=== PATIENT | female | born 1935 | race Caucasian/White ===

== ENCOUNTER 2016-06-21 08:22 | Day surgery (SDC) | payer MEDICARE, MEDICAID ==
[~2016-06-21 08:22] MED LIST: Bupivacaine 0.5% 50 ML MDV ONE; Lidocaine 1% with EPINEPHrine 1:100,000 50 ML MDV ONE
[2016-06-21] MEDS ORDERED: Propofol 200 MG/20 ML SDV ONE ×2 (08:40→10:18)
[2016-06-21] MEDS ORDERED: fentaNYL 100 MCG/2 ML SDV ONE (08:40)
[2016-06-21] MEDS ORDERED: Lactated Ringers 1,000 ML IV SCH (09:00)
[2016-06-21] MEDS ORDERED: Acetaminophen/HYDROcodone 325-5 MG Tab PO ONE (11:27)
[2016-06-21 11:41] VITALS: BP 144/74
--- NOTE | 2016-06-22 07:51 | OR ---
DATE OF PROCEDURE: 06/21/2016 PREOPERATIVE DIAGNOSIS: Right mastectomy site mass. POSTOPERATIVE DIAGNOSIS: Right mastectomy site mass. PROCEDURE: Excisional biopsy, right mastectomy site mass. ANESTHESIA: IV anesthesia with monitored anesthesia care. INDICATION: This 80-year-old white female, about two years ago, underwent a right mastectomy for breast cancer. She had a single positive node on sentinel node biopsy and underwent an axillary dissection. The other 15 nodes showed no evidence of tumor. She now can palpate a mass in the area of her right mastectomy scar. She is here to have it excised. I counseled her for this including risks and alternatives and she gave her informed consent to proceed. DESCRIPTION OF PROCEDURE: After adequate IV anesthesia was obtained, the patient's anterior chest was prepped and draped in the usual sterile fashion. Lidocaine 1 % plain with 0.5% Marcaine with epinephrine was infiltrated over the mass and the mastectomy scar. The mass was adjacent to the scar. An incision through the scar was made and the underlying mass tissue was excised and sent to the laboratory. This appeared to be unremarkable tissue. The incision was irrigated and suctioned dry with sterile water. Hemostasis was obtained with electrocautery. The skin was closed with a subcuticular stitch of 4-0 Vicryl. Dermabond and then a sterile dressing were applied. She tolerated the procedure well and was brought from the operating room in good condition. Eliazar Whitt MD /[id number] [facility]
== END 2016-06-21 12:00 | disposition home or self-care (01) ==
LOC: JP.SDS 08:22
PROVIDERS: ATTEND Surgery
DX: D17.1 Benign lipomatous neoplasm of skin and subcutaneous tissue of trunk (principal); I25.810 Atherosclerosis of coronary artery bypass graft(s) without angina pectoris; K21.9 Gastro-esophageal reflux disease without esophagitis; E78.00 Pure hypercholesterolemia, unspecified; J44.9 Chronic obstructive pulmonary disease, unspecified; Z88.0 Allergy status to penicillin; Z88.2 Allergy status to sulfonamides; Z91.040 Latex allergy status; Z91.09 Other allergy status, other than to drugs and biological substances; Z88.8 Allergy status to other drugs, medicaments and biological substances; G47.33 Obstructive sleep apnea (adult) (pediatric); I73.9 Peripheral vascular disease, unspecified
CPT/HCPCS: 21552; A9270; J2704; J3010; J7120; 88304

== ENCOUNTER 2017-02-07 13:11 | Emergency (ER) | payer MEDICARE, MEDICAID ==
[2017-02-07] MEDS ORDERED: Albuterol/Ipratropium 3.0-0.5 MG/3 ML Neb Soln NEB ONE (13:36)
--- NOTE | 2017-02-07 13:41 | EDM.PDOC ---
ED HPI GENERAL MEDICAL PROBLEM - General Chief Complaint: Chest Pain Stated Complaint: SOB; TIGHTNESS Time Seen by Provider: 02/07/17 13:20 Source of Information: Reports: Patient, Family, Other (Assisted-living staff) History Limitations: Reports: No Limitations - History of Present Illness INITIAL COMMENTS - FREE TEXT/NARRATIVE: 81-year-old female with known coronary artery disease, history of atrial fibrillation and congestive heart failure presents with 24 hours of chest tightness and dyspnea. She had 3 doses of sublingual nitroglycerin without significant benefit and her blood pressure was found to be 190/110. Therefore she was sent in to be evaluated. On arrival she is stable, and a normal sinus rhythm but is still complaining of some discomfort in her chest. No nausea or vomiting, denies a sore throat or cold symptoms such as runny nose. No history of asthma. No exposure to illness at the living center. Onset: Gradual (Over the past 2 days) Location: Reports: Chest Severity: Moderate Associated Symptoms: Reports: Shortness of Breath. Denies: Cough, Fever/Chills , Headaches, Nausea/Vomiting Chest Pain Score (Numeric/FACES): 7 - Related Data Allergies Allergy/AdvReac Type Severity Reaction Status Date / Time furosemide [From Lasix] Allergy Intermediate Chest Verified 02/07/17 13:41 Tightness latex Allergy Intermediate Hives Verified 02/07/17 13:41 Penicillins Allergy Intermediate Hives Verified 02/07/17 13:41 Sulfa (Sulfonamide Allergy Intermediate Hives Verified 02/07/17 13:41 Antibiotics) adhesive tape Allergy Cannot Verified 02/07/17 13:41 Remember lisinopril Allergy Cannot Verified 02/07/17 13:41 Remember codeine AdvReac Intermediate Nausea Verified 02/07/17 13:41 Home Meds: Home Meds Levothyroxine Sodium [Levothroid] 75 mcg PO DAILY 12/30/12 [History] Propranolol HCl 2 tab PO TID 12/30/12 [History] Simvastatin [Zocor] 40 mg PO BEDTIME 12/30/12 [History] Cyanocobalamin (Vitamin B-12) [Cyanocobalamin Injection] 1 ml IM Q7D 01/24/14 [ History] Calcium Citrate 250 mg PO BID 02/08/14 [History] Cholecalciferol (Vitamin D3) [Vitamin D3] 2,000 unit PO DAILY 02/08/14 [History] Bifidobacter. Bifidum/B.Longum [Florajen Bifidoblend] 1 tab PO BID 06/27/14 [ History] Docusate Sodium 100 mg PO BID 06/27/14 [History] Ondansetron [Zofran ODT] 4 mg PO Q8H PRN 06/27/14 [History] Anastrozole [Arimidex] 1 mg PO DAILY 12/19/14 [History] Losartan [Cozaar] 50 mg PO BID 12/19/14 [History] Sucralfate [Carafate] 1 gram PO TID 12/19/14 [History] Acetaminophen [Tylenol Extra Strength] 2 tab PO Q4H PRN 05/23/15 [History] Bumetanide [Bumex] 1 mg PO DAILY 05/23/15 [History] Gabapentin [Neurontin] 2 cap PO TID 05/23/15 [History] Loperamide [Imodium] 2 mg PO QID PRN 05/23/15 [History] Meclizine HCl [Antivert] 25 mg PO Q6H PRN 05/23/15 [History] Pantoprazole Sodium [Protonix] 1 tab PO DAILY 05/23/15 [History] Prochlorperazine Maleate [Compazine] 1 tab PO Q6H PRN 05/23/15 [History] Acetaminophen/oxyCODONE [Percocet 325-5 MG] 1 each PO BEDTIME 06/18/16 [History] Enoxaparin Sodium 0.86 ml SUBCUT Q24H 06/18/16 [History] Fluticasone/Salmeterol [Advair Hfa 230-21 Mcg Inhaler] 2 puff INH BID 06/18/16 [ History] Glimepiride [Amaryl] 4 mg PO QAM 06/18/16 [History] Hydrocortisone [Hydrocortisone 1% Crm] 1 applic TOP BID 06/18/16 [History] Ipratropium [Atrovent HFA] 2 puff INH QID 06/18/16 [History] Isosorbide Mononitrate [Imdur] 60 mg PO DAILY 06/18/16 [History] Nitroglycerin [Nitrostat] 0.4 mg SL ASDIRECTED 06/18/16 [History] Lloyd-3 Fatty Acids [Maxepa] 1,000 mg PO DAILY 06/18/16 [History] Potassium Chloride 20 meq PO DAILY 06/18/16 [History] Warfarin Sodium [Coumadin] 3.5 mg PO .TUTH 06/18/16 [History] Warfarin [Coumadin] 3 mg PO .SUMOWEFRSA 06/18/16 [History] Past Medical History HEENT History: Reports: Cataract, Impaired Vision Cardiovascular History: Reports: Afib, Angina, Heart Failure, High Cholesterol, Hypertension, Stents Respiratory History: Reports: Sleep Apnea Gastrointestinal History: Reports: Cholelithiasis, Gastritis, GERD Genitourinary History: Reports: Urinary Incontinence, UTI, Recurrent CANCELLATION CLERK History: Reports: Dysfunctional Uterine Bleeding, , Spontaneous Musculoskeletal History: Reports: Back Pain, Chronic, Fracture, Osteoarthritis Neurological History: Reports: None Endocrine/Metabolic History: Reports: Diabetes, Type II, Hypothyroidism, Obesity /BMI 30+, Osteoporosis Hematologic History: Reports: Anemia Oncologic (Cancer) History: Reports: Breast Dermatologic History: Reports: Psoriasis - Infectious Disease History Infectious Disease History: Reports: Chicken Pox, Measles, Mumps, Shingles - Past Surgical History HEENT Surgical History: Reports: Adenoidectomy, Cataract Surgery, Tonsillectomy Cardiovascular Surgical History: Reports: Coronary Artery Bypass, Coronary Artery Stent, Percutaneous Transluminal Angioplasty, Vascular Surgery Respiratory Surgical History: Reports: None GI Surgical History: Reports: Appendectomy, Cholecystectomy, Colonoscopy, EGD, Hernia, Abdominal Female Surgical History: Reports: Breast Biopsy, D&C, Hysterectomy, Mastectomy, Salpingo-Oophorectomy Endocrine Surgical History: Reports: None Neurological Surgical History: Reports: Spinal Fusion Musculoskeletal Surgical History: Reports: Shoulder Surgery Other Musculoskeletal Surgeries/Procedures:: back surgery Oncologic Surgical History: Reports: Mastectomy Dermatological Surgical History: Reports: None Social & Family History - Tobacco Use Smoking Status *Q: Never Smoker Second Hand Smoke Exposure: No - Caffeine Use Caffeine Use: Reports: None - Alcohol Use Days Per Week of Alcohol Use: 0 - Recreational Drug Use Recreational Drug Use: No ED ROS GENERAL - Review of Systems Review Of Systems: See Below Constitutional: Reports: Malaise. Denies: Fever, Chills HEENT: Reports: No Symptoms Respiratory: Reports: Shortness of Breath. Denies: Cough Cardiovascular: Reports: Chest Pain (Pressure, viselike squeezing and tightness) GI/Abdominal: Denies: Abdominal Pain, Diarrhea, Nausea, Vomiting : Reports: No Symptoms Skin: Reports: No Symptoms Neurological: Denies: Headache Psychiatric: Reports: No Symptoms ED EXAM, GENERAL - Physical Exam Exam: See Below Exam Limited By: No Limitations General Appearance: Alert, No Apparent Distress Eye Exam: Bilateral Eye: EOMI Head: Atraumatic Respiratory/Chest: No Respiratory Distress, Wheezing (Patient has a few scattered expiratory wheezes and some very faint basilar rales and the extreme bases otherwise good air movement) Cardiovascular: Regular Rate, Rhythm (Distant heart sounds) GI/Abdominal: Soft, Non-Tender Neurological: Alert, Oriented Psychiatric: Anxious Skin Exam: Warm, Dry Course - Vital Signs Last Recorded V/S: Last Vital Signs Temp 99.1 F 02/07/17 13:11 Pulse 84 02/07/17 14:30 Resp 20 02/07/17 14:30 BP 127/67 02/07/17 14:30 Pulse Ox 94 L 02/07/17 14:30 - Orders/Labs/Meds Orders: Active Orders 24 hr Category Date Time Status EKG Documentation Completion [RC] ASDIRECTED Care 02/07/17 13:36 Active RT Aerosol Therapy [RC] ASDIRECTED Care 02/07/17 13:36 Active Chest 1V Frontal [CR] Stat Exams 02/07/17 13:36 Taken EKG 12 Lead [EK] Routine Ther 02/07/17 13:35 Ordered Labs: Laboratory Tests 02/07/17 02/07/17 Range/Units 13:45 13:45 WBC 9.0 (4.5-11.0) K/uL RBC 5.04 (3.30-5.50) M/uL Hgb 11.9 L (12.0-15.0) g/dL Hct 39.9 (36.0-48.0) % MCV 79 L (80-98) fL MCH 24 L (27-31) pg MCHC 30 L (32-36) % Plt Count 217 (150-400) K/uL Neut % (Auto) 61 (36-66) % Lymph % (Auto) 25 (24-44) % Duchesne % (Auto) 11 H (2-6) % Eos % (Auto) 2 (2-4) % Baso % (Auto) 1 (0-1) % Sodium 139 L (140-148) mmol/L Potassium 4.0 (3.6-5.2) mmol/L Chloride 100 (100-108) mmol/L Carbon Dioxide 30 (21-32) mmol/L Anion Gap 13.0 (5.0-14.0) mmol/L BUN 17 (7-18) mg/dL Creatinine 1.0 (0.6-1.0) mg/dL Est Cr Clr Drug Dosing 38.10 mL/min Estimated GFR (MDRD) 53 L (>60) Glucose 111 H (74-106) mg/dL Calcium 9.0 (8.5-10.1) mg/dL Total Bilirubin 0.5 D (0.2-1.0) mg/dL AST 22 (15-37) U/L ALT 25 (12-78) U/L Alkaline Phosphatase 79 (46-116) U/L Troponin I < 0.017 (0.000-0.056) ng/mL Total Protein 7.2 (6.4-8.2) g/dL Albumin 3.5 (3.4-5.0) g/dL Globulin 3.7 H (2.3-3.5) g/dL Albumin/Globulin Ratio 1.0 L (1.2-2.2) Meds: Medications Discontinued Medications Generic Name Dose Route Start Last Admin Trade Name Matteoq PRN Reason Stop Dose Admin Albuterol/Ipratropium 3 ml 02/07/17 13:36 02/07/17 13:58 Duoneb 3.0-0.5 Mg/3 Ml NEB 02/07/17 13:37 3 ml ONETIME ONE Administration - Re-Assessments/Exams Free Text/Narrative Re-Assessment/Exam: 02/07/17 13:40 EKG was done which was normal. A DuoNeb was given while a CBC, CMP, troponin and portable chest x-ray were obtained. 02/07/17 14:37 DuoNeb did offer the patient some subjective improvement. She had less chest discomfort after the nebulizer. The chest x-ray was normal, labs were normal, troponin was 0. I reviewed her past records and she came in with a similar complaint several months ago and had a normal chest CT at that time. I think she 's having some mild to moderate reactive airways which causes her to become anxious and uncomfortable. I suggested she try to use her inhaler if she has symptoms at night instead of nitroglycerin. Departure - Departure Time of Disposition: 14:45 Disposition: Home, Self-Care 01 Condition: Good Clinical Impression: Reactive airway disease that is not asthma, Atypical chest pain - Discharge Information Instructions: Nonspecific Chest Pain, [id number] Referrals: Steffen Camarena MD [Primary Care Provider] - Forms: ED Department Discharge Care Plan Goals: Continue your current medications, try your inhaler if symptoms occur at night. Return anytime if worsening or concerns. - My Orders Last 24 Hours: My Active Orders 02/07/17 13:35 EKG 12 Lead [EK] Routine 02/07/17 13:36 EKG Documentation Completion [RC] ASDIRECTED RT Aerosol Therapy [RC] ASDIRECTED Chest 1V Frontal [CR] Stat - Assessment/Plan Last 24 Hours: My Active Orders 02/07/17 13:35 EKG 12 Lead [EK] Routine 02/07/17 13:36 EKG Documentation Completion [RC] ASDIRECTED RT Aerosol Therapy [RC] ASDIRECTED Chest 1V Frontal [CR] Stat
[2017-02-07 15:00] VITALS: BP 127/67
--- NOTE | 2017-02-08 09:35 | CR ---
Chest 1V Frontal INDICATION: chest pressure, short of breath COMPARISON: 05/12/2016 FINDINGS: AP portable chest. Given rotation, no acute interval change. Cardiomegaly stable. Sternotomy wires. No acute infiltrate or pleural effusion. Right shoulder arthroplasty.
== END 2017-02-07 15:04 | disposition home or self-care (01) ==
LOC: JP.ED 13:11
DX: R07.89 Other chest pain (principal); R06.00 Dyspnea, unspecified; I11.0 Hypertensive heart disease with heart failure; I50.9 Heart failure, unspecified; I25.10 Atherosclerotic heart disease of native coronary artery without angina pectoris; E11.9 Type 2 diabetes mellitus without complications; E03.9 Hypothyroidism, unspecified; Z95.1 Presence of aortocoronary bypass graft; Z95.5 Presence of coronary angioplasty implant and graft; K21.9 Gastro-esophageal reflux disease without esophagitis; Z79.01 Long term (current) use of anticoagulants; Z79.899 Other long term (current) drug therapy; Z88.0 Allergy status to penicillin; Z88.2 Allergy status to sulfonamides; Z88.8 Allergy status to other drugs, medicaments and biological substances; Z91.040 Latex allergy status; Z91.048 Other nonmedicinal substance allergy status
CPT/HCPCS: 36415; 71045; 80053; 84484; 85025; 93005; 94640; 99285; J7620; 93010

== ENCOUNTER 2017-04-08 08:45 | Day surgery (SDC) | payer MEDICARE, MEDICAID ==
[2017-04-08] MEDS ORDERED: Dextrose 5%-Lactated Ringers 1,000 ML IV SCH (09:30)
[2017-04-08] MEDS ORDERED: Propofol 200 MG/20 ML SDV ONE (10:20)
[2017-04-08] MEDS ORDERED: fentaNYL 100 MCG/2 ML SDV ONE (10:20)
[2017-04-08 12:08] VITALS: BP 132/76
--- NOTE | 2017-04-11 07:32 | OR ---
DATE OF PROCEDURE: 04/08/2017 PREOPERATIVE DIAGNOSES: Right chest wall mass. History of right mastectomy for infiltrating ductal carcinoma. POSTOPERATIVE DIAGNOSES: Right chest wall mass. History of right mastectomy for infiltrating ductal carcinoma. PROCEDURE: Excision of right mastectomy site mass, 4 cm long excision. ANESTHESIA: IV anesthesia with monitored anesthesia care. INDICATION: This 81-year-old white female, in January 2014, was found to have right breast cancer. She underwent right mastectomy with sentinel node biopsy. The sentinel node was positive. She underwent an axillary dissection with additional 15 nodes removed and no tumor was seen in any of them. About a year ago, she found a mass in her mastectomy scar, which was excised and returned a lipoma. She now says she can feel another mass. This is indistinct, it is right in the scar, in the more medial half measuring about 3 cm in diameter. She is here to have it excised. I counseled her for excision of this, and she gave her informed consent to proceed. DESCRIPTION OF PROCEDURE: After adequate IV anesthesia was obtained, the patient's right anterior chest was prepped and draped in the usual sterile fashion. Time- out was held. Lidocaine 1% with epinephrine in a 50:50 mix with 0.5% Marcaine was infiltrated about the mass. An elliptical incision involving the mass and the mastectomy scar was made. The incision was 4 cm long. Excision was done all the way down to the ribs. The specimen was sent to pathology. The edges were indistinct, about 3 cm in diameter. Margin would be about half a centimeter. The deep tissues were closed with interrupted horizontal mattress stitches of 3-0 Vicryl. 4-0 Vicryl using a subcuticular stitch was placed to approximate the skin. Dermabond was applied. The patient tolerated the procedure well and was brought to recovery room in a good condition. Eliazar Whitt MD /[id number] [facility]
== END 2017-04-08 13:07 | disposition home or self-care (01) ==
LOC: JP.SDS 08:45
PROVIDERS: ATTEND Surgery
DX: L90.5 Scar conditions and fibrosis of skin (principal); G47.33 Obstructive sleep apnea (adult) (pediatric); I25.10 Atherosclerotic heart disease of native coronary artery without angina pectoris; I73.9 Peripheral vascular disease, unspecified; K21.9 Gastro-esophageal reflux disease without esophagitis; E11.40 Type 2 diabetes mellitus with diabetic neuropathy, unspecified; E03.9 Hypothyroidism, unspecified; Z95.1 Presence of aortocoronary bypass graft; Z99.89 Dependence on other enabling machines and devices; Z88.0 Allergy status to penicillin; Z88.2 Allergy status to sulfonamides; Z88.8 Allergy status to other drugs, medicaments and biological substances; Z91.040 Latex allergy status; Z91.09 Other allergy status, other than to drugs and biological substances
CPT/HCPCS: 88304; J2704; J3010; J7042

== ENCOUNTER 2017-05-30 08:22 | Day surgery (SDC) | payer MEDICARE, MEDICAID ==
[2017-05-30] MEDS ORDERED: Propofol 200 MG/20 ML SDV ONE (08:32)
[2017-05-30] MEDS ORDERED: Midazolam 1 MG/ML 2 ML SDV ONE (08:32)
[2017-05-30] MEDS ORDERED: fentaNYL 100 MCG/2 ML SDV ONE (08:32)
[2017-05-30] MEDS: Lactated Ringers 1,000 ML IV SCH (09:36)
[2017-05-30 11:32] VITALS: BP 149/78
--- NOTE | 2017-05-31 09:05 | OR ---
DATE OF PROCEDURE: 05/30/2017 PREOPERATIVE DIAGNOSES: 1. Epigastric pain. 2. History of gastroesophageal reflux disease. POSTOPERATIVE DIAGNOSES: 1. Gastritis. 2. Gastric polyps. 3. History of gastroesophageal reflux disease. PROCEDURES: Esophagogastroduodenoscopy with antral biopsies for CLOtest, sent for pathology to look for Helicobacter pylori, biopsy resection of some small gastric polyps, biopsy of gastroesophageal junction. SURGEON: Eliazar Whitt MD. ANESTHESIA: IV anesthesia with monitored anesthesia care. INDICATION: This 81-year-old white female is referred for upper endoscopy because of epigastric abdominal pain. She reportedly has a history of gastroesophageal reflux disease. I counseled her for upper endoscopy with possible biopsy, including risks and alternatives, and she gave her informed consent to proceed. DESCRIPTION OF PROCEDURE: The patient was placed in the left lateral decubitus position. IV anesthesia was administered by the Anesthesia Service. Time-out was held. The flexible video Olympus upper endoscope was passed through her mouth, down her esophagus, and into her stomach. The scope was easily passed through the pylorus into the duodenum, reaching its third portion. The scope was then slowly withdrawn, examining the mucosa throughout. The duodenal mucosa appeared unremarkable. The scope was brought up through the pylorus. There was a fine erythema in the antrum and main body of the stomach, consistent with gastritis. We obtained antral biopsies for CLOtest, sent for pathology to look for Helicobacter pylori. The scope was retroflexed. We saw multiple small polyps in the proximal mid body of the stomach. We removed a couple of these. The scope was straightened and brought up to the GE junction. This showed an appearance of chronic inflammation. No acute changes at the present time. We did obtain biopsies of the GE junction. The scope was then brought proximally up through remainder of the esophagus, which otherwise appeared unremarkable, and it was removed. She tolerated the procedure well. Eliazar Whitt MD /[id number]
== END 2017-05-30 12:27 | disposition home or self-care (01) ==
LOC: JP.SDS 08:22
PROVIDERS: ATTEND Surgery
DX: K29.50 Unspecified chronic gastritis without bleeding (principal); K31.7 Polyp of stomach and duodenum; K31.89 Other diseases of stomach and duodenum; I25.10 Atherosclerotic heart disease of native coronary artery without angina pectoris; K21.9 Gastro-esophageal reflux disease without esophagitis; E11.9 Type 2 diabetes mellitus without complications; E78.5 Hyperlipidemia, unspecified; G47.33 Obstructive sleep apnea (adult) (pediatric); I73.9 Peripheral vascular disease, unspecified; Z88.0 Allergy status to penicillin; Z88.2 Allergy status to sulfonamides; Z91.040 Latex allergy status; Z91.09 Other allergy status, other than to drugs and biological substances; Z88.8 Allergy status to other drugs, medicaments and biological substances; Z99.89 Dependence on other enabling machines and devices
CPT/HCPCS: 43239; 87081; J2704; J3010; J7120; 88305; 88342; J2250

== ENCOUNTER 2019-01-16 13:31 | Inpatient (IN) | payer MEDICARE, MEDICAID ==
[2019-01-16] MEDS ORDERED: Ondansetron 4 MG/2 ML SDV IV PRN (14:14)
[2019-01-16] MEDS ORDERED: Polyethylene Glycol 3350 Powder 17 GM Packet PO PRN (14:14)
[2019-01-16] MEDS ORDERED: Glucose Gel 15 GM in 37.5 GM Tube PO PRN (14:14)
[2019-01-16] MEDS ORDERED: 50% Dextrose in Water 50 ML Syringe IV PRN (14:14)
[2019-01-16] MEDS ORDERED: Sodium Chloride 0.9% 10 ML Syringe FLUSH PRN (14:14)
[2019-01-16] MEDS: Meropenem 1 GM in Sodium Chloride 0.9% 100 ML IV SCH ×2 (15:02→22:15)
[2019-01-16] MEDS ORDERED: Albuterol/Ipratropium 3.0-0.5 MG/3 ML Neb Soln INH PRN (15:07)
--- NOTE | 2019-01-16 15:12 | PCM.HP.2 ---
H&P History of Present Illness - General Date of Service: 01/16/19 Admit Problem/Dx: Admission Diagnosis/Problem Admission Diagnosis/Problem Cellulitis Source of Information: Patient, Family, Provider History Limitations: Reports: No Limitations - History of Present Illness Initial Comments - Free Text/Narative: Ms. Camacho is an 83-year-old woman who was admitted as a direct admission from the clinic for further evaluation and management of right leg swelling with cellulitis. She was doing well until approximately 10 days ago when she fell, injuring her right leg. She is on long-term oral anticoagulation with warfarin because of atrial fibrillation. She developed marked ecchymosis in the leg and progressive increase in swelling. She was seen in the clinic one week ago today and felt to have cellulitis of the leg and was started on oral antibiotic therapy. She was seen for follow-up 3 days later and felt to have ongoing cellulitis. At that time she was given a IV dose of IV ceftriaxone and switched to oral antibiotic therapy with clindamycin. She was seen for follow-up today and was felt to have ongoing cellulitis with worsened edema and ecchymosis of the leg. She denies recent fevers chills or sweats, appetite has been poor. - Related Data Allergies/Adverse Reactions: Allergies Allergy/AdvReac Type Severity Reaction Status Date / Time furosemide [From Lasix] Allergy Intermediate Chest Verified 01/16/19 13:59 Tightness latex Allergy Intermediate Hives Verified 01/16/19 13:59 Penicillins Allergy Intermediate Hives Verified 01/16/19 13:59 Sulfa (Sulfonamide Allergy Intermediate Hives Verified 01/16/19 13:59 Antibiotics) lisinopril Allergy Mild Cannot Verified 01/16/19 13:59 Remember adhesive tape Allergy Cannot Verified 01/16/19 13:59 Remember pregabalin [From Lyrica] Allergy Cannot Verified 01/16/19 13:59 Remember propoxyphene Allergy Cannot Verified 01/16/19 13:59 [From Darvocet-N] Remember codeine AdvReac Intermediate Nausea Verified 01/16/19 13:59 Home Medications: Home Meds Levothyroxine Sodium [Levothroid] 75 mcg PO DAILY 12/30/12 [History] Propranolol HCl 20 mg PO TID 12/30/12 [History] Simvastatin [Zocor] 40 mg PO BEDTIME 12/30/12 [History] Cyanocobalamin (Vitamin B-12) [Cyanocobalamin Injection] 1 ml IM Q7D 01/24/14 [ History] Cholecalciferol (Vitamin D3) [Vitamin D3] 2,000 unit PO DAILY 02/08/14 [History] Docusate Sodium 100 mg PO DAILY 06/27/14 [History] Anastrozole [Arimidex] 1 mg PO DAILY 12/19/14 [History] Sucralfate [Carafate] 1 gram PO TID 12/19/14 [History] Bumetanide [Bumex] 2 mg PO DAILY 05/23/15 [History] Acetaminophen/oxyCODONE [Percocet 325-5 MG] 1 each PO BID 06/18/16 [History] Glimepiride [Amaryl] 2 mg PO QAM 06/18/16 [History] Ipratropium [Atrovent HFA] 2 puff INH TID 06/18/16 [History] Isosorbide Mononitrate [Imdur] 60 mg PO DAILY 06/18/16 [History] Nitroglycerin [Nitrostat] 0.4 mg SL ASDIRECTED PRN 06/18/16 [History] Acetaminophen [Tylenol] 650 mg PO Q4HR PRN 04/06/17 [History] Albuterol/Ipratropium [DuoNeb 3.0-0.5 MG/3 ML] 3 ml INH Q6H PRN 04/06/17 [ History] Alum Hydrox/Mag Hydrox/Simeth [Maalox Advanced] 15 ml PO Q6H PRN 04/06/17 [ History] Bisacodyl [Dulcolax] 10 mg RECTAL DAILY PRN 04/06/17 [History] Triamcinolone Acetonide [Kenalog 0.1% Oint] 1 applic TOP BID 04/06/17 [History] Calcium Carbonate [Calcium] 600 mg PO BID 04/07/17 [History] Magnesium Hydroxide [Milk of Magnesia] 30 ml PO DAILY PRN 04/07/17 [History] Na Phos,M-B/Na Phos,Di-Ba [Fleet Enema] 1 applicful RECTAL ASDIRECTED PRN [History] Potassium Chloride 20 meq PO DAILY 05/30/17 [History] Warfarin [Coumadin] 2 mg PO ASDIRECTED 05/30/17 [History] Warfarin [Coumadin] 3 mg PO ASDIRECTED 05/30/17 [History] Carboxymethylcell/Glycerin/Pf [Refresh Optive Sensitive Drops] 1 drop EYEBOTH TID 01/06/18 [History] Diclofenac Sodium [Voltaren 1% Gel] 4 g TOP QID PRN 01/06/18 [History] Meclizine [Antivert] 25 mg PO Q6H PRN 01/06/18 [History] Mirabegron [Myrbetriq] 50 mg PO DAILY 01/06/18 [History] Nystatin [Nyamyc] 1 applic TOP BID 01/06/18 [History] Acetaminophen/HYDROcodone [[place] 325-5 MG] 1 tab PO Q4HR PRN 01/16/19 [History] Clindamycin HCl 300 mg PO QID 01/16/19 [History] Ipratropium [Atrovent HFA Inh] 2 puff INH Q6H 01/16/19 [History] Loperamide [Imodium] 2 mg PO Q6H PRN 01/16/19 [History] guaiFENesin [Tussin] 200 mg PO Q4HR PRN 01/16/19 [History] Past Medical History HEENT History: Reports: Cataract, Impaired Vision Cardiovascular History: Reports: Afib, Angina, Heart Failure, High Cholesterol, Hypertension, Stents Respiratory History: Reports: Sleep Apnea, Other (See Below) Other Respiratory History: Cpap at home Gastrointestinal History: Reports: Cholelithiasis, Gastritis, GERD Genitourinary History: Reports: Urinary Incontinence, UTI, Recurrent FLUID DYNAMICIST History: Reports: Dysfunctional Uterine Bleeding, , Spontaneous Musculoskeletal History: Reports: Back Pain, Chronic, Fracture, Osteoarthritis Neurological History: Reports: Neuropathy, Diabetic Psychiatric History: Reports: Anxiety Endocrine/Metabolic History: Reports: Diabetes, Type II, Hypothyroidism, Obesity /BMI 30+, Osteoporosis Hematologic History: Reports: Anemia, Anticoagulation Therapy Oncologic (Cancer) History: Reports: Breast Dermatologic History: Reports: Psoriasis - Infectious Disease History Infectious Disease History: Reports: Chicken Pox, Shingles - Past Surgical History HEENT Surgical History: Reports: Adenoidectomy, Cataract Surgery, Tonsillectomy Cardiovascular Surgical History: Reports: Coronary Artery Bypass, Coronary Artery Stent, Percutaneous Transluminal Angioplasty, Vascular Surgery GI Surgical History: Reports: Appendectomy, Cholecystectomy, Colonoscopy, EGD, Hernia, Abdominal Female Surgical History: Reports: Breast Biopsy, D&C, Hysterectomy, Mastectomy, Salpingo-Oophorectomy, Other (See Below) Other Female Surgeries/Procedures: right mastectomy Neurological Surgical History: Reports: Spinal Fusion Musculoskeletal Surgical History: Reports: Shoulder Surgery, Other (See Below) Other Musculoskeletal Surgeries/Procedures:: back surgery Oncologic Surgical History: Reports: Mastectomy Social & Family History - Family History Family Medical History: Noncontributory - Caffeine Use Caffeine Use: Reports: Coffee H&P Review of Systems - Review of Systems: Review Of Systems: See Below General: Reports: Weakness, Decreased Appetite. Denies: Fever, Chills HEENT: Reports: No Symptoms Pulmonary: Reports: No Symptoms Cardiovascular: Reports: No Symptoms Gastrointestinal: Reports: No Symptoms Genitourinary: Reports: No Symptoms Musculoskeletal: Reports: Leg Pain (Right leg swelling and pain) Skin: Reports: No Symptoms Psychiatric: Reports: No Symptoms Neurological: Reports: No Symptoms Hematologic/Lymphatic: Reports: No Symptoms Immunologic: Reports: No Symptoms Exam - Exam Exam: See Below - Vital Signs Vital Signs: Last Vital Signs Temp 98 F 01/16/19 14:14 Pulse 71 01/16/19 14:14 Resp 18 01/16/19 14:14 BP 117/65 01/16/19 14:14 Pulse Ox 92 L 01/16/19 14:14 Weight: 189 lb - Exam Quality Assessment: DVT Prophylaxis General: Alert, Oriented, Cooperative, Mild Distress HEENT: Conjunctiva Clear, Hearing Intact, Mucosa Moist & [place], Normal Nasal Septum, Posterior Pharynx Clear, Pupils Equal Neck: Supple, Trachea Midline, +2 Carotid Pulse wo Bruit Lungs: Clear to Auscultation, Normal Respiratory Effort Cardiovascular: Regular Rate, Regular Rhythm, Normal S1, Normal S2. No: Systolic Murmur, Diastolic Murmur GI/Abdominal Exam: Soft, Non-Tender, No Organomegaly, No Distention Back Exam: Normal Inspection, Full Range of Motion Extremities: Non-Tender, Pedal Edema, Leg Pain (Significant swelling, ecchymosis , and tenderness, right leg) - Patient Data Lab Results Last 24 hrs: Laboratory Results - last 24 hr 01/16/19 01/16/19 Range/Units 14:30 14:30 WBC 11.7 H (4.5-11.0) K/uL RBC 4.45 (3.30-5.50) M/uL Hgb 12.6 D (12.0-15.0) g/dL Hct 41.7 (36.0-48.0) % MCV 94 (80-98) fL MCH 28 (27-31) pg MCHC 30 L (32-36) % Plt Count 315 (150-400) K/uL Neut % (Auto) 63 (36-66) % Lymph % (Auto) 25 (24-44) % [place] % (Auto) 8 H (2-6) % Eos % (Auto) 3 (2-4) % Baso % (Auto) 1 (0-1) % PT 34.4 H (9.5-12.0) sec INR 3.41 H (0.80-1.20) Result Diagrams: 01/16/19 14:30 01/16/19 14:30 Sepsis Event Note - Evaluation Sepsis Screening Result: No Definite Risk - Focused Exam Vital Signs: Vital Signs Temp Pulse Resp BP Pulse Ox 01/16/19 14:14 98 F 71 18 117/65 92 L Date Exam was Performed: 01/16/19 Time Exam was Performed: 16:15 *Q Meaningful Use (ADM) - VTE *Q VTE Pharmacological Contraindications *Q: High INR Value - VTE Risk Assess *Q Each Risk Factor Represents 1 Point: Obesity ( BMI > 25 kg/m2) Total Score 1 Point Risk Factors: 1 Each Risk Factor Represents 2 Points: Malignancy (present or previous) Total Score 2 Point Risk Factors: 2 Each Risk Factor Represents 3 Points: Age 75 Years or Greater Total Score 3 Point Risk Factors: 3 Each Risk Factor Represents 5 Points: None Total Score 5 Point Risk Factors: 0 Venous Thromboembolism Risk Factor Score *Q: 6 Problem List Initiated/Reviewed/Updated: Yes Orders Last 24hrs: Active Orders 24 hr Category Date Time Status Patient Status [ADT] Routine ADT 01/16/19 14:14 Active Ambulate [RC] QID Care 01/16/19 14:14 Active Blood Glucose Check, Bedside [RC] QIDACANDBED Care 01/16/19 14:14 Active Communication Order [RC] STAT Care 01/16/19 14:14 Active Diabetes Education [RC] Click to Edit Care 01/16/19 14:14 Active Height and Weight [RC] DAILY Care 01/16/19 14:14 Active Intake and Output [RC] QSHIFT Care 01/16/19 14:14 Active Notify Provider Vital Signs [RC] ASDIRECTED Care 01/16/19 14:14 Active Notify Provider [RC] PRN Care 01/16/19 14:14 Active Up With Assistance [RC] ASDIRECTED Care 01/16/19 14:14 Active Up to Chair [RC] QID Care 01/16/19 14:14 Active VTE/DVT Education [RC] Per Unit Routine Care 01/16/19 14:14 Active Vital Signs [RC] Q4H Care 01/16/19 14:14 Active PT Evaluation and Treatment [CONS] Routine Cons 01/16/19 14:14 Active Consistent Carbohydrate Diet [DIET] Diet 01/16/19 Lunch Active VL Duplex Lwr Ext Veins Ltd Rt [US] Routine Exams 01/16/19 14:20 Ordered COMPREHENSIVE METABOLIC PN,CMP [CHEM] Stat Lab 01/16/19 14:30 Received CULTURE BLOOD [BC] Stat Lab 01/16/19 14:30 Received CULTURE BLOOD [BC] Stat Lab 01/16/19 14:35 Received GLUCOSE POC LAB TO COLLECT [POC] QIDACANDBED Lab 01/17/19 07:30 Ordered GLUCOSE POC LAB TO COLLECT [POC] QIDACANDBED Lab 01/17/19 11:30 Ordered GLUCOSE POC LAB TO COLLECT [POC] QIDACANDBED Lab 01/17/19 16:30 Ordered GLUCOSE POC LAB TO COLLECT [POC] QIDACANDBED Lab 01/17/19 21:00 Ordered GLUCOSE POC LAB TO COLLECT [POC] QIDACANDBED Lab 01/18/19 07:30 Ordered GLUCOSE POC LAB TO COLLECT [POC] QIDACANDBED Lab 01/18/19 11:30 Ordered GLUCOSE POC LAB TO COLLECT [POC] QIDACANDBED Lab 01/18/19 16:30 Ordered GLUCOSE POC LAB TO COLLECT [POC] QIDACANDBED Lab 01/18/19 21:00 Ordered GLUCOSE POC LAB TO COLLECT [POC] QIDACANDBED Lab 01/19/19 07:30 Ordered GLUCOSE POC LAB TO COLLECT [POC] QIDACANDBED Lab 01/19/19 11:30 Ordered GLUCOSE POC LAB TO COLLECT [POC] QIDACANDBED Lab 01/19/19 16:30 Ordered GLUCOSE POC LAB TO COLLECT [POC] QIDACANDBED Lab 01/19/19 21:00 Ordered GLUCOSE POC LAB TO COLLECT [POC] QIDACANDBED Lab 01/20/19 07:30 Ordered GLUCOSE POC LAB TO COLLECT [POC] QIDACANDBED Lab 01/20/19 11:30 Ordered GLUCOSE POC LAB TO COLLECT [POC] QIDACANDBED Lab 01/20/19 16:30 Ordered GLUCOSE POC LAB TO COLLECT [POC] QIDACANDBED Lab 01/20/19 21:00 Ordered GLUCOSE POC LAB TO COLLECT [POC] QIDACANDBED Lab 01/21/19 07:30 Ordered GLUCOSE POC LAB TO COLLECT [POC] QIDACANDBED Lab 01/21/19 11:30 Ordered MAGNESIUM [CHEM] Stat Lab 01/16/19 14:30 Received Acetaminophen [Tylenol] Med 01/16/19 14:14 Active 650 mg PO Q4H PRN Acetaminophen/oxyCODONE [Percocet 325-5 MG] Med 01/16/19 15:07 Ordered 1 tab PO Q4H PRN Albuterol/Ipratropium [DuoNeb 3.0-0.5 MG/3 ML] Med 01/16/19 15:07 Ordered 3 ml INH Q6H PRN Anastrozole [Arimidex] Med 01/17/19 09:00 Ordered 1 mg PO DAILY Carboxymethylcell/Glycerin/Pf [Refresh Optive Sensitive Med 01/16/19 21:00 Ordered Drops] 1 drop EYEBOTH TID Dextrose 50% in Water Med 01/16/19 14:14 Active 50 ml IV ASDIRECTED PRN Dextrose [Glutose 15] Med 01/16/19 14:14 Active 15 gm PO ASDIRECTED PRN Docusate Sodium [Colace] Med 01/17/19 09:00 Ordered 100 mg PO DAILY Glimepiride [Amaryl] Med 01/17/19 09:00 Ordered 2 mg PO QAM Insulin Lispro [HumaLOG] Med 01/16/19 17:00 Active See Protocol SUBCUT QIDACANDBED Isosorbide Mononitrate [Imdur] Med 01/17/19 09:00 Ordered 60 mg PO DAILY Lactobacillus Rhamnosus GG [Culturelle] Med 01/16/19 21:00 Active 1 cap PO BID Levothyroxine Sodium [Levothroid] Med 01/17/19 09:00 Ordered 75 mcg PO DAILY Meropenem [Merrem] 1 gm Med 01/16/19 15:00 Active Sodium Chloride 0.9% [Normal Saline] 100 ml IV Q8H Mirabegron [Myrbetriq] Med 01/17/19 09:00 Ordered 50 mg PO DAILY Nystatin [Nystop] Med 01/16/19 21:00 Ordered 1 applic TOP BID Ondansetron [Zofran] Med 01/16/19 14:14 Active 4 mg IV Q4H PRN Polyethylene Glycol 3350 [MiraLAX] Med 01/16/19 14:14 Active 17 gm PO DAILY PRN Potassium Chloride [Potassium Chloride Solution] Med 01/17/19 09:00 Ordered 20 meq PO DAILY Propranolol HCl [Propranolol HCl] Med 01/16/19 21:00 Ordered 20 mg PO TID Simvastatin [Zocor] Med 01/16/19 21:00 Ordered 40 mg PO BEDTIME Sodium Chloride 0.9% [Saline Flush] Med 01/16/19 14:14 Active 10 ml FLUSH ASDIRECTED PRN Sucralfate [Carafate] Med 01/16/19 21:00 Ordered 1 gm PO TID Warfarin [Coumadin] Med 01/16/19 15:15 Ordered 2 mg PO ASDIRECTED Warfarin [Coumadin] Med 01/16/19 15:15 Ordered 3 mg PO ASDIRECTED Blood Culture x2 Reflex Set [OM.PC] Stat Oth 01/16/19 14:18 Ordered Saline Lock Insert [OM.PC] Routine Oth 01/16/19 14:14 Ordered VTE Pharmacological Contraindications [AST] Per Unit Oth 01/16/19 14:14 Ordered Routine Resuscitation Status Routine Resus Stat 01/16/19 14:14 Ordered Medication Orders Acetaminophen (Tylenol) 650 mg PO Q4H PRN PRN Reason: Pain (Mild 1-3)/fever Albuterol/Ipratropium (Duoneb 3.0-0.5 Mg/3 Ml) 3 ml INH Q6H PRN PRN Reason: Shortness of Breath Anastrozole (Arimidex) 1 mg PO DAILY [facility] Dextrose (Glutose 15) 15 gm PO ASDIRECTED PRN PRN Reason: Hypoglycemia Dextrose/Water (Dextrose 50% In Water) 50 ml IV ASDIRECTED PRN PRN Reason: Hypoglycemia Docusate Sodium (Colace) 100 mg PO DAILY [facility] Meropenem 1 gm/ Sodium (Chloride) 100 mls @ 200 mls/hr IV Q8H [facility] Last Admin: 01/16/19 15:02 Dose: 200 mls/hr Infusion: 01/16/19 15:02 Dose: 200 mls/hr Admin: 01/16/19 15:02 Dose: 200 mls/hr Insulin Human Lispro (Humalog) 0 unit SUBCUT QIDACANDBED [facility]; Protocol Lactobacillus Rhamnosus (Culturelle) 1 cap PO BID [facility] Mirabegron (Myrbetriq) 50 mg PO DAILY [facility] Non-Formulary Medication (Carboxymethylcell/Glycerin/Pf [Refresh Optive Sensitive Drops]) 1 drop EYEBOTH TID [facility] Non-Formulary Medication (Glimepiride [Amaryl]) 2 mg PO QAM [facility] Non-Formulary Medication (Isosorbide Mononitrate [Imdur]) 60 mg PO DAILY [facility] Non-Formulary Medication (Levothyroxine Sodium [Levothroid]) 75 mcg PO DAILY [facility] Non-Formulary Medication (Propranolol Hcl [Propranolol Hcl]) 20 mg PO TID [facility] Non-Formulary Medication (Simvastatin [Zocor]) 40 mg PO BEDTIME [facility] Non-Formulary Medication (Warfarin [Coumadin]) 2 mg PO ASDIRECTED [facility] Non-Formulary Medication (Warfarin [Coumadin]) 3 mg PO ASDIRECTED [facility] Nystatin (Nystop) gm TOP BID [facility] Ondansetron HCl (Zofran) 4 mg IV Q4H PRN PRN Reason: Nausea/Vomiting Oxycodone/Acetaminophen (Percocet 325-5 Mg) 1 tab PO Q4H PRN PRN Reason: Pain Polyethylene Glycol (Miralax) 17 gm PO DAILY PRN PRN Reason: Constipation Potassium Chloride (Potassium Chloride Solution) 20 meq PO DAILY [facility] Sodium Chloride (Saline Flush) 10 ml FLUSH ASDIRECTED PRN PRN Reason: Keep Vein Open Sucralfate (Carafate) 1 gm PO TID [facility] Assessment/Plan Comment:: ASSESSMENT AND PLAN INJURY/ECCHYMOSIS RIGHT LEG-fell approximately 10 days ago injuring her right leg and right upper arm. On follow-up in the clinic last week felt to have cellulitis and despite oral antibiotic therapy with 2 different antibiotics is still felt to be experiencing some cellulitis. Over the last week has developed increased ecchymosis and swelling of the right lower extremity. She is on long- term oral anticoagulation with warfarin for atrial fibrillation. -Venous Doppler study to rule out deep vein thrombosis -IV Bumex for diuresis -Cultures pending -IV meropenem, pending culture result -Hold warfarin TYPE 2 DIABETES MELLITUS -Continue oral hypoglycemic therapy -4 times a day glucometers -Low-dose sliding scale Humalog CHRONIC ORAL ANTICOAGULATION WITH WARFARIN-4 underlying atrial fibrillation, INR today mildly supratherapeutic -Recheck INR in a.m. -Hold warfarin MAINTENANCE ISSUES -DVT prophylaxis; current therapy with warfarin should provide adequate DVT prophylaxis -GI prophylaxis; not indicated -Mancini catheter; not indicated -Nutrition; consistent carb diet -Nicotine dependence; not required CODE STATUS-FULL CODE ADMISSION STATUS-patient will be admitted to inpatient status, expect at least a 2 night hospital stay for evaluation and management of problems as outlined above. At the time of this admission I do not reasonably expected evaluation and management of this problem will require more than a 96 hour hospital stay. DISPOSITION-anticipate discharge to home after the hospital stay. PRIMARY CARE PROVIDER-Dr. Camarena - Mortality Measure Prognosis:: Good
[2019-01-16] MEDS: Acetaminophen/oxyCODONE 325-5 MG Tab PO PRN ×2 (15:59→20:10)
[2019-01-16] MEDS ORDERED: Bumetanide 1 MG/4 ML MDV IVPUSH ONE (16:00)
[2019-01-16] MEDS: Insulin Lispro 100 Unit/ML 3 ML KwikPen SUBCUT SCH ×2 (16:29→20:06)
--- NOTE | 2019-01-16 16:54 | CRLUS ---
INDICATION: Status post injury 01/06 with right leg edema. COMPARISON: None available. FINDINGS: Ultrasound of the venous drainage of the right lower extremity shows no evidence of deep venous thrombosis. There is normal antegrade flow from the posterior tibial and peroneal veins superiorly through the common femoral vein. There is normal augmentation and compressibility of these veins. The right greater saphenous vein is widely patent with easy compressibility. The left common femoral vein is widely patent. IMPRESSION: No evidence of deep or superficial venous thrombosis on ultrasound examination of the right lower extremity. Dictated by Dung Jade MD @ Jan 16 2019 4:51PM Signed by Dr. Dung Jade @ Jan 16 2019 4:52PM
[2019-01-16] MEDS: Propranolol 40 MG Tab PO SCH (20:09)
[2019-01-16] MEDS: Lactobacillus Rhamnosus GG (Probiotic) Cap PO SCH (20:09)
[2019-01-16] MEDS: Sucralfate 1 GM Tab PO SCH (20:11)
[2019-01-16] MEDS: Hypromellose 0.3% Ophth Soln 15 ML Bottle EYEBOTH SCH (20:11)
[2019-01-16] MEDS: Nystatin Topical Powder 15 GM Bottle TOP SCH (20:13)
[2019-01-16] MEDS: Simvastatin 20 MG Tab PO SCH (20:16)
[2019-01-17] MEDS: Acetaminophen/oxyCODONE 325-5 MG Tab PO PRN ×4 (01:21→20:35)
[2019-01-17] MEDS: Insulin Lispro 100 Unit/ML 3 ML KwikPen SUBCUT SCH ×4 (08:01→20:44)
[2019-01-17] MEDS: Meropenem 1 GM in Sodium Chloride 0.9% 100 ML IV SCH ×2 (08:03→20:34)
[2019-01-17] MEDS: Levothyroxine 25 MCG Tab PO SCH (08:10)
[2019-01-17] MEDS: Anastrozole 1 MG Tab PO SCH (08:11)
[2019-01-17] MEDS: Glimepiride 2 MG Tab PO SCH (08:11)
[2019-01-17] MEDS: Docusate Sodium 100 MG Cap PO SCH (08:14)
[2019-01-17] MEDS: Sucralfate 1 GM Tab PO SCH ×3 (08:14→20:35)
[2019-01-17] MEDS: Lactobacillus Rhamnosus GG (Probiotic) Cap PO SCH ×2 (08:14→20:35)
[2019-01-17] MEDS: Hypromellose 0.3% Ophth Soln 15 ML Bottle EYEBOTH SCH ×3 (08:15→20:34)
[2019-01-17] MEDS: Propranolol 40 MG Tab PO SCH ×3 (08:16→20:36)
[2019-01-17] MEDS: Isosorbide Mononitrate 30 MG Tab.ER PO SCH (08:16)
[2019-01-17] MEDS: Mirabegron 25 MG Tab Extended Release PO SCH (08:17)
[2019-01-17] MEDS: Potassium Chloride 10% 20 MEQ/15 ML Soln 15 ML UD Cup PO SCH (08:18)
[2019-01-17] MEDS: Nystatin Topical Powder 15 GM Bottle TOP SCH ×2 (08:18→20:34)
[2019-01-17] MEDS ORDERED: Bumetanide 1 MG/4 ML MDV IVPUSH ONE (08:45)
--- NOTE | 2019-01-17 10:01 | PCM.PN ---
- General Info Date of Service: 01/17/19 Subjective Update: Ms. Camacho has been stable since admission, good diuresis yesterday with improvement in right leg edema. White blood cell count has normalized and she has remained afebrile. Functional Status: Reports: Tolerating Diet, Ambulating, Urinating - Review of Systems General: Reports: Weakness. Denies: Fever, Chills Pulmonary: Reports: No Symptoms Cardiovascular: Reports: Edema. Denies: Chest Pain, Palpitations, Dyspnea on Exertion, Orthopnea, PND Gastrointestinal: Reports: No Symptoms - Patient Data Vitals - Most Recent: Last Vital Signs Temp 97.9 F 01/16/19 23:51 Pulse 70 01/16/19 23:51 Resp 16 01/16/19 23:51 BP 129/69 01/17/19 08:16 Pulse Ox 92 L 01/16/19 23:51 Weight - Most Recent: 189 lb I&O - Last 24 Hours: Intake & Output 01/16/19 01/17/19 01/17/19 22:59 06:59 14:59 Intake Total 360 Balance 360 Lab Results Last 24 Hours: Laboratory Results - last 24 hr 01/16/19 01/16/19 01/16/19 Range/Units 14:30 14:30 14:30 WBC 11.7 H (4.5-11.0) K/uL RBC 4.45 (3.30-5.50) M/uL Hgb 12.6 D (12.0-15.0) g/dL Hct 41.7 (36.0-48.0) % MCV 94 (80-98) fL MCH 28 (27-31) pg MCHC 30 L (32-36) % Plt Count 315 (150-400) K/uL Neut % (Auto) 63 (36-66) % Lymph % (Auto) 25 (24-44) % Emery % (Auto) 8 H (2-6) % Eos % (Auto) 3 (2-4) % Baso % (Auto) 1 (0-1) % PT 34.4 H (9.5-12.0) sec INR 3.41 H (0.80-1.20) Sodium 137 L (140-148) mmol/L Potassium 4.3 (3.6-5.2) mmol/L Chloride 103 (100-108) mmol/L Carbon Dioxide 26 (21-32) mmol/L Anion Gap 12.3 (5.0-14.0) mmol/L BUN 21 H (7-18) mg/dL Creatinine 0.9 (0.6-1.0) mg/dL Est Cr Clr Drug Dosing 37.46 mL/min Estimated GFR (MDRD) 60 (>60) Glucose 76 (74-106) mg/dL Calcium 8.4 L (8.5-10.1) mg/dL Magnesium 2.1 (1.8-2.4) mg/dL Total Bilirubin 0.6 (0.2-1.0) mg/dL AST 20 (15-37) U/L ALT 19 (12-78) U/L Alkaline Phosphatase 100 (46-116) U/L Total Protein 7.5 (6.4-8.2) g/dL Albumin 3.1 L (3.4-5.0) g/dL Globulin 4.4 H (2.3-3.5) g/dL Albumin/Globulin Ratio 0.7 L (1.2-2.2) 01/17/19 01/17/19 Range/Units 09:01 09:01 WBC 8.8 (4.5-11.0) K/uL RBC 4.70 (3.30-5.50) M/uL Hgb 13.3 (12.0-15.0) g/dL Hct 44.0 (36.0-48.0) % MCV 94 (80-98) fL MCH 28 (27-31) pg MCHC 30 L (32-36) % Plt Count 289 (150-400) K/uL Neut % (Auto) 62 (36-66) % Lymph % (Auto) 26 (24-44) % Emery % (Auto) 9 H (2-6) % Eos % (Auto) 3 (2-4) % Baso % (Auto) 1 (0-1) % PT (9.5-12.0) sec INR (0.80-1.20) Sodium 139 L (140-148) mmol/L Potassium 4.2 (3.6-5.2) mmol/L Chloride 102 (100-108) mmol/L Carbon Dioxide 28 (21-32) mmol/L Anion Gap 13.2 (5.0-14.0) mmol/L BUN 21 H (7-18) mg/dL Creatinine 1.1 H (0.6-1.0) mg/dL Est Cr Clr Drug Dosing 30.65 mL/min Estimated GFR (MDRD) 47 L (>60) Glucose 96 (74-106) mg/dL Calcium 8.5 (8.5-10.1) mg/dL Magnesium (1.8-2.4) mg/dL Total Bilirubin (0.2-1.0) mg/dL AST (15-37) U/L ALT (12-78) U/L Alkaline Phosphatase (46-116) U/L Total Protein (6.4-8.2) g/dL Albumin (3.4-5.0) g/dL Globulin (2.3-3.5) g/dL Albumin/Globulin Ratio (1.2-2.2) Med Orders - Current: Current Medications Acetaminophen (Tylenol) 650 mg PO Q4H PRN PRN Reason: Pain (Mild 1-3)/fever Albuterol/Ipratropium (Duoneb 3.0-0.5 Mg/3 Ml) 3 ml INH Q6H PRN PRN Reason: Shortness of Breath Anastrozole (Arimidex) 1 mg PO DAILY [facility] Last Admin: 01/17/19 08:11 Dose: 1 mg Artificial Tears (Genteal Mild To Moderate Ophth Soln) 0 ml EYEBOTH TID [facility] Last Admin: 01/17/19 08:15 Dose: 1 drop Dextrose (Glutose 15) 15 gm PO ASDIRECTED PRN PRN Reason: Hypoglycemia Dextrose/Water (Dextrose 50% In Water) 50 ml IV ASDIRECTED PRN PRN Reason: Hypoglycemia Docusate Sodium (Colace) 100 mg PO DAILY [facility] Last Admin: 01/17/19 08:14 Dose: 100 mg Glimepiride (Amaryl) 2 mg PO DAILY [facility] Last Admin: 01/17/19 08:11 Dose: 2 mg Meropenem 1 gm/ Sodium (Chloride) 100 mls @ 200 mls/hr IV Q12H [facility] Insulin Human Lispro (Humalog) 0 unit SUBCUT QIDACANDBED [facility]; Protocol Last Admin: 01/17/19 08:01 Dose: Not Given Isosorbide Mononitrate (Imdur) 60 mg PO DAILY [facility] Last Admin: 01/17/19 08:16 Dose: 60 mg Lactobacillus Rhamnosus (Culturelle) 1 cap PO BID [facility] Last Admin: 01/17/19 08:14 Dose: 1 cap Levothyroxine Sodium (Levothyroxine) 75 mcg PO DAILY@0730 [facility] Last Admin: 01/17/19 08:10 Dose: 75 mcg Mirabegron (Myrbetriq) 50 mg PO DAILY [facility] Last Admin: 01/17/19 08:17 Dose: 50 mg Nystatin (Nystop) 0 gm TOP BID [facility] Last Admin: 01/17/19 08:18 Dose: Not Given Ondansetron HCl (Zofran) 4 mg IV Q4H PRN PRN Reason: Nausea/Vomiting Oxycodone/Acetaminophen (Percocet 325-5 Mg) 1 tab PO Q4H PRN PRN Reason: Pain Last Admin: 01/17/19 09:12 Dose: 1 tab Polyethylene Glycol (Miralax) 17 gm PO DAILY PRN PRN Reason: Constipation Potassium Chloride (Potassium Chloride Solution) 20 meq PO DAILY [facility] Last Admin: 01/17/19 08:18 Dose: 20 meq Propranolol HCl (Inderal) 20 mg PO TID [facility] Last Admin: 01/17/19 08:16 Dose: 40 mg Simvastatin (Zocor) 40 mg PO BEDTIME [facility] Last Admin: 01/16/19 20:16 Dose: 40 mg Sodium Chloride (Saline Flush) 10 ml FLUSH ASDIRECTED PRN PRN Reason: Keep Vein Open Sucralfate (Carafate) 1 gm PO TID [facility] Last Admin: 01/17/19 08:14 Dose: 1 gm Discontinued Medications Bumetanide (Bumex) 2 mg IVPUSH ONETIME ONE Stop: 01/16/19 16:01 Last Admin: 01/16/19 16:36 Dose: 2 mg Bumetanide (Bumex) 2 mg IVPUSH ONETIME ONE Stop: 01/17/19 08:46 Last Admin: 01/17/19 09:37 Dose: 2 mg Meropenem 1 gm/ Sodium (Chloride) 100 mls @ 200 mls/hr IV Q8H [facility] Last Admin: 01/17/19 08:03 Dose: 200 mls/hr Warfarin Sodium (Coumadin) 2 mg PO MoTuWeFr@1300 [facility] Warfarin Sodium (Coumadin) 3 mg PO SuThSa@1300 [facility] - Exam Quality Assessment: DVT Prophylaxis General: Alert, Oriented, Cooperative, Mild Distress Lungs: Clear to Auscultation, Normal Respiratory Effort Cardiovascular: Regular Rate, Regular Rhythm, No Murmurs GI/Abdominal Exam: Soft, Non-Tender, No Organomegaly, No Distention Extremities: Pedal Edema Sepsis Event Note - Evaluation Sepsis Screening Result: No Definite Risk - Focused Exam Vital Signs: Vital Signs Temp Pulse Resp BP BP Pulse Ox 01/17/19 08:16 129/69 01/16/19 23:51 97.9 F 70 16 129/69 92 L Date Exam was Performed: 01/17/19 Time Exam was Performed: 09:57 - Problem List Review Problem List Initiated/Reviewed/Updated: Yes - My Orders Last 24 Hours: My Active Orders 01/16/19 14:14 Patient Status [ADT] Routine Ambulate [RC] QID Blood Glucose Check, Bedside [RC] QIDACANDBED Communication Order [RC] STAT Diabetes Education [RC] Click to Edit Height and Weight [RC] DAILY Intake and Output [RC] QSHIFT Notify Provider Vital Signs [RC] ASDIRECTED Notify Provider [RC] PRN Up With Assistance [RC] ASDIRECTED Up to Chair [RC] QID VTE/DVT Education [RC] Per Unit Routine Vital Signs [RC] Q4H PT Evaluation and Treatment [CONS] Routine Acetaminophen [Tylenol] 650 mg PO Q4H PRN Dextrose 50% in Water 50 ml IV ASDIRECTED PRN Dextrose [Glutose 15] 15 gm PO ASDIRECTED PRN Ondansetron [Zofran] 4 mg IV Q4H PRN Polyethylene Glycol 3350 [MiraLAX] 17 gm PO DAILY PRN Sodium Chloride 0.9% [Saline Flush] 10 ml FLUSH ASDIRECTED PRN Saline Lock Insert [OM.PC] Routine VTE Pharmacological Contraindications [AST] Per Unit Routine Resuscitation Status Routine 01/16/19 14:18 Blood Culture x2 Reflex Set [OM.PC] Stat 01/16/19 14:30 CULTURE BLOOD [BC] Stat 01/16/19 14:35 CULTURE BLOOD [BC] Stat 01/16/19 15:07 Acetaminophen/oxyCODONE [Percocet 325-5 MG] 1 tab PO Q4H PRN Albuterol/Ipratropium [DuoNeb 3.0-0.5 MG/3 ML] 3 ml INH Q6H PRN 01/16/19 17:00 Insulin Lispro [HumaLOG] See Protocol SUBCUT QIDACANDBED 01/16/19 21:00 Hypromellose [GenTeal Mild to Moderate Ophth Soln] 0 ml EYEBOTH TID Lactobacillus Rhamnosus GG [Culturelle] 1 cap PO BID Nystatin [Nystop] 0 gm TOP BID Propranolol [Inderal] 20 mg PO TID Simvastatin [Zocor] 40 mg PO BEDTIME Sucralfate [Carafate] 1 gm PO TID 01/16/19 Lunch Consistent Carbohydrate Diet [DIET] 01/17/19 07:30 Levothyroxine 75 mcg PO DAILY@72901/17/19 09:00 Anastrozole [Arimidex] 1 mg PO DAILY Docusate Sodium [Colace] 100 mg PO DAILY Glimepiride [Amaryl] 2 mg PO DAILY Isosorbide Mononitrate [Imdur] 60 mg PO DAILY Mirabegron [Myrbetriq] 50 mg PO DAILY Potassium Chloride [Potassium Chloride Solution] 20 meq PO DAILY 01/17/19 20:00 Meropenem [Merrem] 1 gm Sodium Chloride 0.9% [Normal Saline] 100 ml IV Q12H 01/18/19 05:00 BASIC METABOLIC PANEL,BMP [CHEM] Timed INR,PT,PROTHROMBIN TIME [COAG] Timed 01/18/19 07:30 GLUCOSE POC LAB TO COLLECT [POC] QIDACANDBED 01/18/19 11:30 GLUCOSE POC LAB TO COLLECT [POC] QIDACANDBED 01/18/19 16:30 GLUCOSE POC LAB TO COLLECT [POC] QIDACANDBED 01/18/19 21:00 GLUCOSE POC LAB TO COLLECT [POC] QIDACANDBED 01/19/19 07:30 GLUCOSE POC LAB TO COLLECT [POC] QIDACANDBED 01/19/19 11:30 GLUCOSE POC LAB TO COLLECT [POC] QIDACANDBED 01/19/19 16:30 GLUCOSE POC LAB TO COLLECT [POC] QIDACANDBED 01/19/19 21:00 GLUCOSE POC LAB TO COLLECT [POC] QIDACANDBED 01/20/19 07:30 GLUCOSE POC LAB TO COLLECT [POC] QIDACANDBED 01/20/19 11:30 GLUCOSE POC LAB TO COLLECT [POC] QIDACANDBED 01/20/19 16:30 GLUCOSE POC LAB TO COLLECT [POC] QIDACANDBED 01/20/19 21:00 GLUCOSE POC LAB TO COLLECT [POC] QIDACANDBED 01/21/19 07:30 GLUCOSE POC LAB TO COLLECT [POC] QIDACANDBED 01/21/19 11:30 GLUCOSE POC LAB TO COLLECT [POC] QIDACANDBED - Plan Plan:: ASSESSMENT AND PLAN INJURY/ECCHYMOSIS RIGHT LEG-fell approximately 11 days ago injuring her right leg and right upper arm. Improvement in edema with diuresis, no evidence of deep vein thrombosis -IV Bumex for diuresis -Cultures pending -IV meropenem, pending culture result -Hold warfarin TYPE 2 DIABETES MELLITUS -Continue oral hypoglycemic therapy -4 times a day glucometers -Low-dose sliding scale Humalog CHRONIC ORAL ANTICOAGULATION WITH WARFARIN-4 underlying atrial fibrillation, INR mildly supratherapeutic -Recheck INR in a.m. -Hold warfarin MAINTENANCE ISSUES -DVT prophylaxis; current therapy with warfarin should provide adequate DVT prophylaxis -GI prophylaxis; not indicated -Mancini catheter; not indicated -Nutrition; consistent carb diet -Nicotine dependence; not required CODE STATUS-FULL CODE ADMISSION STATUS-patient will be admitted to inpatient status, expect at least a 2 night hospital stay for evaluation and management of problems as outlined above. At the time of this admission I do not reasonably expected evaluation and management of this problem will require more than a 96 hour hospital stay. DISPOSITION-anticipate discharge to home after the hospital stay. PRIMARY CARE PROVIDER-Dr. Camarena
[2019-01-17] MEDS: Acetaminophen 325 MG Tab PO PRN (20:34)
[2019-01-17] MEDS: Simvastatin 20 MG Tab PO SCH (20:35)
[2019-01-18] MEDS: Acetaminophen/oxyCODONE 325-5 MG Tab PO PRN ×5 (01:38→22:51)
[2019-01-18] MEDS: Nystatin Topical Powder 15 GM Bottle TOP SCH ×3 (03:00→21:38)
[2019-01-18] MEDS: Meropenem 1 GM in Sodium Chloride 0.9% 100 ML IV SCH ×2 (07:37→20:52)
[2019-01-18] MEDS: Levothyroxine 25 MCG Tab PO SCH (07:37)
[2019-01-18] MEDS: Insulin Lispro 100 Unit/ML 3 ML KwikPen SUBCUT SCH ×4 (07:42→21:33)
[2019-01-18] MEDS ORDERED: Bumetanide 1 MG/4 ML MDV IVPUSH ONE (08:00)
[2019-01-18] MEDS: Sucralfate 1 GM Tab PO SCH ×3 (08:42→21:38)
[2019-01-18] MEDS: Isosorbide Mononitrate 30 MG Tab.ER PO SCH (08:42)
[2019-01-18] MEDS: Propranolol 40 MG Tab PO SCH ×3 (08:42→21:38)
[2019-01-18] MEDS: Mirabegron 25 MG Tab Extended Release PO SCH (08:42)
[2019-01-18] MEDS: Hypromellose 0.3% Ophth Soln 15 ML Bottle EYEBOTH SCH ×3 (08:43→21:38)
[2019-01-18] MEDS: Glimepiride 2 MG Tab PO SCH (08:43)
[2019-01-18] MEDS: Docusate Sodium 100 MG Cap PO SCH (08:43)
[2019-01-18] MEDS: Lactobacillus Rhamnosus GG (Probiotic) Cap PO SCH ×2 (08:43→21:38)
[2019-01-18] MEDS: Anastrozole 1 MG Tab PO SCH (08:43)
[2019-01-18] MEDS: Potassium Chloride 10% 20 MEQ/15 ML Soln 15 ML UD Cup PO SCH (08:44)
--- NOTE | 2019-01-18 12:07 | PCM.PN ---
- General Info Date of Service: 01/18/19 Subjective Update: Ms. Camacho has been stable since yesterday, further diuresis with decrease in tenderness and edema right lower extremity. INR today is subtherapeutic and she will be restarted on her warfarin. Vital signs have remained stable and she has been afebrile. Functional Status: Reports: Tolerating Diet, Ambulating, Urinating - Review of Systems General: Reports: Weakness. Denies: Fever, Chills Pulmonary: Reports: No Symptoms Cardiovascular: Reports: No Symptoms Gastrointestinal: Reports: No Symptoms Musculoskeletal: Reports: Leg Pain - Patient Data Vitals - Most Recent: Last Vital Signs Temp 97 F 01/18/19 07:00 Pulse 75 01/18/19 07:00 Resp 16 01/18/19 07:00 BP 137/67 01/18/19 08:42 Pulse Ox 94 L 01/18/19 07:00 Weight - Most Recent: 197 lb 15.99 oz I&O - Last 24 Hours: Intake & Output 01/17/19 01/18/19 01/18/19 22:59 06:59 14:59 Intake Total 1200 Balance 1200 Lab Results Last 24 Hours: Laboratory Results - last 24 hr 01/18/19 01/18/19 Range/Units 05:30 05:30 PT 16.3 H (9.5-12.0) sec INR 1.55 H (0.80-1.20) Sodium 138 L (140-148) mmol/L Potassium 4.1 (3.6-5.2) mmol/L Chloride 102 (100-108) mmol/L Carbon Dioxide 27 (21-32) mmol/L Anion Gap 13.1 (5.0-14.0) mmol/L BUN 27 H (7-18) mg/dL Creatinine 1.0 (0.6-1.0) mg/dL Est Cr Clr Drug Dosing 33.71 mL/min Estimated GFR (MDRD) 53 L (>60) Glucose 104 (74-106) mg/dL Calcium 8.5 (8.5-10.1) mg/dL Bimal Results Last 24 Hours: Microbiology 01/16/19 14:35 Aerobic Blood Culture - Preliminary Blood - Venous - Lab Draw NO GROWTH AFTER 1 DAY Anaerobic Blood Culture - Preliminary NO GROWTH AFTER 1 DAY 01/16/19 14:30 Aerobic Blood Culture - Preliminary Blood - Venous NO GROWTH AFTER 1 DAY Anaerobic Blood Culture - Preliminary NO GROWTH AFTER 1 DAY Med Orders - Current: Current Medications Acetaminophen (Tylenol) 650 mg PO Q4H PRN PRN Reason: Pain (Mild 1-3)/fever Last Admin: 01/17/19 20:34 Dose: 650 mg Albuterol/Ipratropium (Duoneb 3.0-0.5 Mg/3 Ml) 3 ml INH Q6H PRN PRN Reason: Shortness of Breath Anastrozole (Arimidex) 1 mg PO DAILY [facility] Last Admin: 01/18/19 08:43 Dose: 1 mg Artificial Tears (Genteal Mild To Moderate Ophth Soln) 0 ml EYEBOTH TID [facility] Last Admin: 01/18/19 08:43 Dose: 1 drop Dextrose (Glutose 15) 15 gm PO ASDIRECTED PRN PRN Reason: Hypoglycemia Dextrose/Water (Dextrose 50% In Water) 50 ml IV ASDIRECTED PRN PRN Reason: Hypoglycemia Docusate Sodium (Colace) 100 mg PO DAILY [facility] Last Admin: 01/18/19 08:43 Dose: 100 mg Glimepiride (Amaryl) 2 mg PO DAILY [facility] Last Admin: 01/18/19 08:43 Dose: 2 mg Meropenem 1 gm/ Sodium (Chloride) 100 mls @ 200 mls/hr IV Q12H [facility] Last Admin: 01/18/19 07:37 Dose: 200 mls/hr Insulin Human Lispro (Humalog) 0 unit SUBCUT QIDACANDBED [facility]; Protocol Last Admin: 01/18/19 11:23 Dose: Not Given Isosorbide Mononitrate (Imdur) 60 mg PO DAILY [facility] Last Admin: 01/18/19 08:42 Dose: 60 mg Lactobacillus Rhamnosus (Culturelle) 1 cap PO BID [facility] Last Admin: 01/18/19 08:43 Dose: 1 cap Levothyroxine Sodium (Levothyroxine) 75 mcg PO DAILY@0730 [facility] Last Admin: 01/18/19 07:37 Dose: 75 mcg Mirabegron (Myrbetriq) 50 mg PO DAILY [facility] Last Admin: 01/18/19 08:42 Dose: 50 mg Nystatin (Nystop) 0 gm TOP BID [facility] Last Admin: 01/18/19 09:00 Dose: Not Given Ondansetron HCl (Zofran) 4 mg IV Q4H PRN PRN Reason: Nausea/Vomiting Oxycodone/Acetaminophen (Percocet 325-5 Mg) 1 tab PO Q4H PRN PRN Reason: Pain Last Admin: 01/18/19 08:47 Dose: 1 tab Polyethylene Glycol (Miralax) 17 gm PO DAILY PRN PRN Reason: Constipation Potassium Chloride (Potassium Chloride Solution) 20 meq PO DAILY [facility] Last Admin: 01/18/19 08:44 Dose: 20 meq Propranolol HCl (Inderal) 20 mg PO TID [facility] Last Admin: 01/18/19 08:42 Dose: 20 mg Simvastatin (Zocor) 40 mg PO BEDTIME [facility] Last Admin: 01/17/19 20:35 Dose: 40 mg Sodium Chloride (Saline Flush) 10 ml FLUSH ASDIRECTED PRN PRN Reason: Keep Vein Open Sucralfate (Carafate) 1 gm PO TID [facility] Last Admin: 01/18/19 08:42 Dose: 1 gm Warfarin Sodium (Coumadin) 3 mg PO DAILY@1300 [facility] Discontinued Medications Bumetanide (Bumex) 2 mg IVPUSH ONETIME ONE Stop: 01/16/19 16:01 Last Admin: 01/16/19 16:36 Dose: 2 mg Bumetanide (Bumex) 2 mg IVPUSH ONETIME ONE Stop: 01/17/19 08:46 Last Admin: 01/17/19 09:37 Dose: 2 mg Bumetanide (Bumex) 2 mg IVPUSH ONETIME ONE Stop: 01/18/19 08:01 Last Admin: 01/18/19 07:38 Dose: 2 mg Meropenem 1 gm/ Sodium (Chloride) 100 mls @ 200 mls/hr IV Q8H [facility] Last Admin: 01/17/19 08:03 Dose: 200 mls/hr Warfarin Sodium (Coumadin) 2 mg PO MoTuWeFr@1300 [facility] Warfarin Sodium (Coumadin) 3 mg PO SuThSa@1300 [facility] - Exam Quality Assessment: DVT Prophylaxis General: Alert, Oriented, Cooperative, Mild Distress Lungs: Clear to Auscultation, Normal Respiratory Effort Cardiovascular: Regular Rate, No Murmurs, Irregular Rhythm GI/Abdominal Exam: Soft, Non-Tender, No Organomegaly, No Distention Extremities: Pedal Edema. No: Non-Tender Sepsis Event Note - Evaluation Sepsis Screening Result: No Definite Risk - Focused Exam Vital Signs: Vital Signs Temp Pulse Resp BP BP Pulse Ox 01/18/19 08:42 137/67 01/18/19 07:00 97 F 75 16 137/67 94 L 01/18/19 03:00 98.3 F 84 16 160/80 H 91 L Date Exam was Performed: 01/18/19 Time Exam was Performed: 12:05 - Problem List Review Problem List Initiated/Reviewed/Updated: Yes - My Orders Last 24 Hours: My Active Orders 01/17/19 20:00 Meropenem [Merrem] 1 gm Sodium Chloride 0.9% [Normal Saline] 100 ml IV Q12H 01/18/19 13:00 Warfarin [Coumadin] 3 mg PO DAILY@1300 01/19/19 05:00 BASIC METABOLIC PANEL,BMP [CHEM] Timed INR,PT,PROTHROMBIN TIME [COAG] Timed 01/19/19 07:30 GLUCOSE POC LAB TO COLLECT [POC] QIDACANDBED 01/19/19 11:30 GLUCOSE POC LAB TO COLLECT [POC] QIDACANDBED 01/19/19 16:30 GLUCOSE POC LAB TO COLLECT [POC] QIDACANDBED 01/19/19 21:00 GLUCOSE POC LAB TO COLLECT [POC] QIDACANDBED 01/20/19 07:30 GLUCOSE POC LAB TO COLLECT [POC] QIDACANDBED 01/20/19 11:30 GLUCOSE POC LAB TO COLLECT [POC] QIDACANDBED 01/20/19 16:30 GLUCOSE POC LAB TO COLLECT [POC] QIDACANDBED 01/20/19 21:00 GLUCOSE POC LAB TO COLLECT [POC] QIDACANDBED 01/21/19 07:30 GLUCOSE POC LAB TO COLLECT [POC] QIDACANDBED 01/21/19 11:30 GLUCOSE POC LAB TO COLLECT [POC] QIDACANDBED - Plan Plan:: ASSESSMENT AND PLAN INJURY/ECCHYMOSIS RIGHT LEG-fell 12 days ago injuring her right leg and right upper arm. Improvement in edema with diuresis, no evidence of deep vein thrombosis -IV Bumex for diuresis -Cultures pending -IV meropenem, pending culture result TYPE 2 DIABETES MELLITUS -Continue oral hypoglycemic therapy -4 times a day glucometers -Low-dose sliding scale Humalog CHRONIC ORAL ANTICOAGULATION WITH WARFARIN-4 underlying atrial fibrillation, INR mildly supratherapeutic -Recheck INR in a.m. -Resume warfarin MAINTENANCE ISSUES -DVT prophylaxis; current therapy with warfarin should provide adequate DVT prophylaxis -GI prophylaxis; not indicated -Mancini catheter; not indicated -Nutrition; consistent carb diet -Nicotine dependence; not required CODE STATUS-FULL CODE ADMISSION STATUS-patient will be admitted to inpatient status, expect at least a 2 night hospital stay for evaluation and management of problems as outlined above. At the time of this admission I do not reasonably expected evaluation and management of this problem will require more than a 96 hour hospital stay. DISPOSITION-anticipate discharge to home after the hospital stay. PRIMARY CARE PROVIDER-Dr. Camarena
[2019-01-18] MEDS: Simvastatin 20 MG Tab PO SCH (21:38)
[2019-01-19] MEDS: Acetaminophen/oxyCODONE 325-5 MG Tab PO PRN ×2 (03:02→07:49)
[2019-01-19] MEDS: Insulin Lispro 100 Unit/ML 3 ML KwikPen SUBCUT SCH ×2 (07:30→11:44)
[2019-01-19] MEDS: Meropenem 1 GM in Sodium Chloride 0.9% 100 ML IV SCH ×2 (07:43→10:20)
[2019-01-19] MEDS: Levothyroxine 25 MCG Tab PO SCH (07:43)
[2019-01-19] MEDS: Anastrozole 1 MG Tab PO SCH (09:06)
[2019-01-19] MEDS: Glimepiride 2 MG Tab PO SCH (09:06)
[2019-01-19] MEDS: Docusate Sodium 100 MG Cap PO SCH (09:07)
[2019-01-19] MEDS: Lactobacillus Rhamnosus GG (Probiotic) Cap PO SCH (09:07)
[2019-01-19] MEDS: Sucralfate 1 GM Tab PO SCH ×2 (09:07→14:48)
[2019-01-19] MEDS: Isosorbide Mononitrate 30 MG Tab.ER PO SCH (09:08)
[2019-01-19] MEDS: Hypromellose 0.3% Ophth Soln 15 ML Bottle EYEBOTH SCH ×2 (09:08→14:48)
[2019-01-19] MEDS: Mirabegron 25 MG Tab Extended Release PO SCH (09:13)
[2019-01-19] MEDS: Potassium Chloride 10% 20 MEQ/15 ML Soln 15 ML UD Cup PO SCH (09:14)
[2019-01-19] MEDS: Nystatin Topical Powder 15 GM Bottle TOP SCH (09:14)
[2019-01-19] MEDS: Propranolol 40 MG Tab PO SCH ×2 (09:26→14:48)
--- NOTE | 2019-01-19 10:08 | PCM.DCSUM1 ---
Discharge Summary - Hospital Course Brief History: Ms. Camacho is an 83-year-old woman who was admitted as a admission from the clinic with persistent cellulitis and swelling of her right lower extremity. - Discharge Data Discharge Date: 01/19/19 Discharge Disposition: Home, Self-Care 01 Condition: Fair - Referral to Home Health Primary Care Physician: Steffen Camarena MD - Discharge Diagnosis/Problem(s) (1) Cellulitis of right leg SNOMED Code(s): 749102425 ICD Code: L03.115 - CELLULITIS OF RIGHT LOWER LIMB Status: Acute Current Visit: Yes (2) Chronic atrial fibrillation SNOMED Code(s): 188798638 ICD Code: I48.20 - CHRONIC ATRIAL FIBRILLATION, UNSPECIFIED Status: Chronic Current Visit: No (3) Type 2 diabetes mellitus SNOMED Code(s): 96417418 ICD Code: E11.9 - TYPE 2 DIABETES MELLITUS WITHOUT COMPLICATIONS Status: Chronic Current Visit: No - Patient Summary/Data Consults: Consultations 01/16/19 14:14 PT Evaluation and Treatment [CONS] Routine Please Evaluate and Treat. PT Reason for Consult: Weakness This query below is only for informational purposes and is not editable. Hospital Course: Ms. Camacho is an 83-year-old woman who was admitted as a direct admission from the clinic for further evaluation and management of right leg swelling with cellulitis. She was doing well until approximately 10 days ago when she fell, injuring her right leg. She is on long-term oral anticoagulation with warfarin because of atrial fibrillation. She developed marked ecchymosis in the leg and progressive increase in swelling. She was seen in the clinic one week ago and felt to have cellulitis of the leg and was started on oral antibiotic therapy. She was seen for follow-up 3 days later and felt to have ongoing cellulitis. At that time she was given a IV dose of IV ceftriaxone and switched to oral antibiotic therapy with clindamycin. She was seen for follow-up today and was felt to have ongoing cellulitis with worsened edema and ecchymosis of the leg. She denies recent fevers chills or sweats, appetite has been poor. On admission blood cultures were obtained and she was started on IV antibiotic therapy with meropenem. She was also given daily doses of IV Bumex for diuresis. Blood cultures remained negative throughout her hospital stay. She was continued on oral anticoagulation with warfarin, INR was subtherapeutic at the time of discharge. Blood glucose levels were monitored regularly and she was treated with sliding scale low-dose Humalog. By the time of discharge the leg was significantly improved with mild residual erythema and edema. Ongoing areas of resolving ecchymosis. She will be discharged back to assisted living facility. We will have the right leg wrapped with Juancarlos wraps daily and keep elevated while sitting. Activity will be as tolerated and she will remain on a diabetic heart healthy diet. Follow-up appointment will be scheduled with Dr. Camarena within 1 week, BMP should be obtained at the time of follow-up appointment. Follow-up appointment will be scheduled in the Coumadin clinic for January 22. - Patient Instructions Diet: Heart Healthy Diet, Diabetic Diet Activity: As Tolerated Other/Special Instructions: Wrap right leg with Juancarlos wrap daily. Please schedule meant with Dr. Camarena within 1 week. BMP should be obtained at the time of follow-up appointment. Coumadin clinic appointment for November 22. - Discharge Plan *PRESCRIPTION DRUG MONITORING PROGRAM REVIEWED*: Not Applicable *COPY OF PRESCRIPTION DRUG MONITORING REPORT IN PATIENT TYRON: Not Applicable Prescriptions/Med Rec: Lactobacillus Rhamnosus GG [Culturelle] 1 cap PO BID #60 cap levoFLOXacin [Levaquin] 500 mg PO DAILY #5 tab Home Medications: Home Meds Levothyroxine Sodium [Levothroid] 75 mcg PO DAILY 12/30/12 [History] Propranolol HCl 20 mg PO TID 12/30/12 [History] Simvastatin [Zocor] 40 mg PO BEDTIME 12/30/12 [History] Cyanocobalamin (Vitamin B-12) [Cyanocobalamin Injection] 1 ml IM Q7D 01/24/14 [ History] Cholecalciferol (Vitamin D3) [Vitamin D3] 2,000 unit PO DAILY 02/08/14 [History] Docusate Sodium 100 mg PO DAILY 06/27/14 [History] Anastrozole [Arimidex] 1 mg PO DAILY 12/19/14 [History] Sucralfate [Carafate] 1 gram PO TID 12/19/14 [History] Bumetanide [Bumex] 2 mg PO DAILY 05/23/15 [History] Acetaminophen/oxyCODONE [Percocet 325-5 MG] 1 each PO BID 06/18/16 [History] Glimepiride [Amaryl] 2 mg PO QAM 06/18/16 [History] Ipratropium [Atrovent HFA] 2 puff INH TID 06/18/16 [History] Isosorbide Mononitrate [Imdur] 60 mg PO DAILY 06/18/16 [History] Nitroglycerin [Nitrostat] 0.4 mg SL ASDIRECTED PRN 06/18/16 [History] Acetaminophen [Tylenol] 650 mg PO Q4HR PRN 04/06/17 [History] Albuterol/Ipratropium [DuoNeb 3.0-0.5 MG/3 ML] 3 ml INH Q6H PRN 04/06/17 [ History] Alum Hydrox/Mag Hydrox/Simeth [Maalox Advanced] 15 ml PO Q6H PRN 04/06/17 [ History] Bisacodyl [Dulcolax] 10 mg RECTAL DAILY PRN 04/06/17 [History] Triamcinolone Acetonide [Kenalog 0.1% Oint] 1 applic TOP BID 04/06/17 [History] Calcium Carbonate [Calcium] 600 mg PO BID 04/07/17 [History] Magnesium Hydroxide [Milk of Magnesia] 30 ml PO DAILY PRN 04/07/17 [History] Na Phos,M-B/Na Phos,Di-Ba [Fleet Enema] 1 applicful RECTAL ASDIRECTED PRN [History] Potassium Chloride 20 meq PO DAILY 05/30/17 [History] Warfarin [Coumadin] 2 mg PO ASDIRECTED 05/30/17 [History] Warfarin [Coumadin] 3 mg PO ASDIRECTED 05/30/17 [History] Carboxymethylcell/Glycerin/Pf [Refresh Optive Sensitive Drops] 1 drop EYEBOTH TID 01/06/18 [History] Diclofenac Sodium [Voltaren 1% Gel] 4 g TOP QID PRN 01/06/18 [History] Meclizine [Antivert] 25 mg PO Q6H PRN 01/06/18 [History] Mirabegron [Myrbetriq] 50 mg PO DAILY 01/06/18 [History] Nystatin [Nyamyc] 1 applic TOP BID 01/06/18 [History] Acetaminophen/HYDROcodone [[place] 325-5 MG] 1 tab PO Q4HR PRN 01/16/19 [History] Clindamycin HCl 300 mg PO QID 01/16/19 [History] Ipratropium [Atrovent HFA] 2 puff INH Q6H 01/16/19 [History] Loperamide [Imodium] 2 mg PO Q6H PRN 01/16/19 [History] guaiFENesin [Tussin] 200 mg PO Q4HR PRN 01/16/19 [History] Lactobacillus Rhamnosus GG [Culturelle] 1 cap PO BID #60 cap 01/19/19 [Rx] levoFLOXacin [Levaquin] 500 mg PO DAILY #5 tab 01/19/19 [Rx] Patient Handouts: Cellulitis, Adult, [id number] - Discharge Summary/Plan Comment DC Time >30 min.: No - Patient Data Vitals - Most Recent: Last Vital Signs Temp 97.3 F 01/19/19 07:36 Pulse 78 01/19/19 07:36 Resp 20 01/19/19 07:36 BP 97/55 L 01/19/19 09:08 Pulse Ox 94 L 01/19/19 07:36 Weight - Most Recent: 197 lb 15.99 oz I&O - Last 24 hours: Intake & Output 01/18/19 01/19/19 01/19/19 22:59 06:59 14:59 Intake Total 1400 300 120 Output Total 450 300 150 Balance 950 0 -30 Lab Results - Last 24 hrs: Laboratory Results - last 24 hr 01/19/19 01/19/19 Range/Units 05:40 05:40 PT 13.9 H (9.5-12.0) sec INR 1.31 H (0.80-1.20) Sodium 137 L (140-148) mmol/L Potassium 4.0 (3.6-5.2) mmol/L Chloride 101 (100-108) mmol/L Carbon Dioxide 29 (21-32) mmol/L Anion Gap 11.0 (5.0-14.0) mmol/L BUN 31 H (7-18) mg/dL Creatinine 1.0 (0.6-1.0) mg/dL Est Cr Clr Drug Dosing 33.71 mL/min Estimated GFR (MDRD) 53 L (>60) Glucose 90 (74-106) mg/dL Calcium 8.4 L (8.5-10.1) mg/dL BAILEE Results - Last 24 hrs: Microbiology 01/16/19 14:30 Aerobic Blood Culture - Preliminary Blood - Venous NO GROWTH AFTER 2 DAYS Anaerobic Blood Culture - Preliminary NO GROWTH AFTER 2 DAYS 01/16/19 14:35 Aerobic Blood Culture - Preliminary Blood - Venous - Lab Draw NO GROWTH AFTER 2 DAYS Anaerobic Blood Culture - Preliminary NO GROWTH AFTER 2 DAYS Med Orders - Current: Current Medications Acetaminophen (Tylenol) 650 mg PO Q4H PRN PRN Reason: Pain (Mild 1-3)/fever Last Admin: 01/17/19 20:34 Dose: 650 mg Albuterol/Ipratropium (Duoneb 3.0-0.5 Mg/3 Ml) 3 ml INH Q6H PRN PRN Reason: Shortness of Breath Anastrozole (Arimidex) 1 mg PO DAILY [facility] Last Admin: 01/19/19 09:06 Dose: 1 mg Artificial Tears (Genteal Mild To Moderate Ophth Soln) 0 ml EYEBOTH TID [facility] Last Admin: 01/19/19 09:08 Dose: 1 drop Dextrose (Glutose 15) 15 gm PO ASDIRECTED PRN PRN Reason: Hypoglycemia Dextrose/Water (Dextrose 50% In Water) 50 ml IV ASDIRECTED PRN PRN Reason: Hypoglycemia Docusate Sodium (Colace) 100 mg PO DAILY [facility] Last Admin: 01/19/19 09:07 Dose: 100 mg Glimepiride (Amaryl) 2 mg PO DAILY [facility] Last Admin: 01/19/19 09:06 Dose: 2 mg Meropenem 1 gm/ Sodium (Chloride) 100 mls @ 200 mls/hr IV Q12H [facility] Last Admin: 01/19/19 07:43 Dose: 200 mls/hr Insulin Human Lispro (Humalog) 0 unit SUBCUT QIDACANDBED [facility]; Protocol Last Admin: 01/19/19 07:30 Dose: Not Given Isosorbide Mononitrate (Imdur) 60 mg PO DAILY [facility] Last Admin: 01/19/19 09:08 Dose: 60 mg Lactobacillus Rhamnosus (Culturelle) 1 cap PO BID [facility] Last Admin: 01/19/19 09:07 Dose: 1 cap Levothyroxine Sodium (Levothyroxine) 75 mcg PO DAILY@0730 [facility] Last Admin: 01/19/19 07:43 Dose: 75 mcg Mirabegron (Myrbetriq) 50 mg PO DAILY [facility] Last Admin: 01/19/19 09:13 Dose: 50 mg Nystatin (Nystop) 0 gm TOP BID [facility] Last Admin: 01/19/19 09:14 Dose: Not Given Ondansetron HCl (Zofran) 4 mg IV Q4H PRN PRN Reason: Nausea/Vomiting Oxycodone/Acetaminophen (Percocet 325-5 Mg) 1 tab PO Q4H PRN PRN Reason: Pain Last Admin: 01/19/19 07:49 Dose: 1 tab Polyethylene Glycol (Miralax) 17 gm PO DAILY PRN PRN Reason: Constipation Potassium Chloride (Potassium Chloride Solution) 20 meq PO DAILY [facility] Last Admin: 01/19/19 09:14 Dose: 20 meq Propranolol HCl (Inderal) 20 mg PO TID [facility] Last Admin: 01/19/19 09:26 Dose: Not Given Simvastatin (Zocor) 40 mg PO BEDTIME [facility] Last Admin: 01/18/19 21:38 Dose: 40 mg Sodium Chloride (Saline Flush) 10 ml FLUSH ASDIRECTED PRN PRN Reason: Keep Vein Open Sucralfate (Carafate) 1 gm PO TID [facility] Last Admin: 01/19/19 09:07 Dose: 1 gm Warfarin Sodium (Coumadin) 3 mg PO DAILY@1300 [facility] Last Admin: 01/18/19 13:19 Dose: 3 mg Discontinued Medications Bumetanide (Bumex) 2 mg IVPUSH ONETIME ONE Stop: 01/16/19 16:01 Last Admin: 01/16/19 16:36 Dose: 2 mg Bumetanide (Bumex) 2 mg IVPUSH ONETIME ONE Stop: 01/17/19 08:46 Last Admin: 01/17/19 09:37 Dose: 2 mg Bumetanide (Bumex) 2 mg IVPUSH ONETIME ONE Stop: 01/18/19 08:01 Last Admin: 01/18/19 07:38 Dose: 2 mg Meropenem 1 gm/ Sodium (Chloride) 100 mls @ 200 mls/hr IV Q8H [facility] Last Admin: 01/17/19 08:03 Dose: 200 mls/hr Warfarin Sodium (Coumadin) 2 mg PO MoTuWeFr@1300 [facility] Warfarin Sodium (Coumadin) 3 mg PO SuThSa@1300 [facility] - Exam General: Reports: Alert, Oriented, Cooperative, No Acute Distress Lungs: Reports: Clear to Auscultation, Normal Respiratory Effort Cardiovascular: Reports: Regular Rate, No Murmurs, Irregular Rhythm GI/Abdominal Exam: Soft, Non-Tender, No Organomegaly, No Distention Extremities: Pedal Edema (Mild edema and erythema right lower leg) *Q Meaningful Use (DIS) - VTE *Q VTE Pharmacological Contraindications *Q: High INR Value
[2019-01-19 12:21] VITALS: BP 83/52; PULSE 68
[2019-01-19] MEDS: Acetaminophen 325 MG Tab PO PRN (12:38)
== END 2019-01-19 13:50 | disposition home or self-care (01) | DRG 603 ==
LOC: JP.ICU 13:31 → JP.MS 01-18 15:19
PROVIDERS: ADMIT Hospitalist; ATTEND Hospitalist
DX: L03.115 Cellulitis of right lower limb (principal); I48.20 Chronic atrial fibrillation, unspecified; E78.00 Pure hypercholesterolemia, unspecified; I10 Essential (primary) hypertension; G47.30 Sleep apnea, unspecified; K21.9 Gastro-esophageal reflux disease without esophagitis; E66.9 Obesity, unspecified; M19.90 Unspecified osteoarthritis, unspecified site; D64.9 Anemia, unspecified; F41.9 Anxiety disorder, unspecified; E11.42 Type 2 diabetes mellitus with diabetic polyneuropathy; Z91.040 Latex allergy status; Z88.0 Allergy status to penicillin; Z88.8 Allergy status to other drugs, medicaments and biological substances; Z88.2 Allergy status to sulfonamides; Z91.09 Other allergy status, other than to drugs and biological substances; Z88.5 Allergy status to narcotic agent; Z79.890 Hormone replacement therapy; Z79.01 Long term (current) use of anticoagulants; Z79.899 Other long term (current) drug therapy; Z98.49 Cataract extraction status, unspecified eye; Z90.49 Acquired absence of other specified parts of digestive tract; Z90.710 Acquired absence of both cervix and uterus; Z95.5 Presence of coronary angioplasty implant and graft; Z68.36 Body mass index [BMI] 36.0-36.9, adult
CPT/HCPCS: 36415; 80048; 80053; 82962; 83735; 85025; 85610; 87040; 93971-RT; 97110-GP; 97116-GP; 97161-GP; 97530-GP; 97535-GP; A9270-GY; J2185; J3490; J7050

== ENCOUNTER 2019-01-27 16:09 | Emergency (ER) | payer MEDICARE, MEDICAID ==
[2019-01-27 16:38] VITALS: BP 167/85; PULSE 79
--- NOTE | 2019-01-27 17:23 | EDM.PDOC ---
ED HPI GENERAL MEDICAL PROBLEM - General Chief Complaint: Skin Complaint Stated Complaint: PAIN CELLULITIS Time Seen by Provider: 01/27/19 17:22 Source of Information: Reports: Patient History Limitations: Reports: No Limitations - History of Present Illness INITIAL COMMENTS - FREE TEXT/NARRATIVE: 83 years old female patient presented to the ER with a chief complaint of Worsening pain and swelling, and redness of the right lower extremity. She had a Recent fall. Finished 2 courses of antibiotics. Assisted living staff concerned about worsening swelling, pain and redness of her right lower extremity. Denies any fever. Denies any chest pain shortness breath. Denies any abdominal pain diarrhea or constipation. Denies any urinary symptom. No discharge. Right Leg Pain Score (Numeric/FACES): 8 - Related Data Allergies Allergy/AdvReac Type Severity Reaction Status Date / Time furosemide [From Lasix] Allergy Intermediate Chest Verified 01/27/19 16:35 Tightness latex Allergy Intermediate Hives Verified 01/27/19 16:35 Penicillins Allergy Intermediate Hives Verified 01/27/19 16:35 Sulfa (Sulfonamide Allergy Intermediate Hives Verified 01/27/19 16:35 Antibiotics) lisinopril Allergy Mild Cannot Verified 01/27/19 16:35 Remember adhesive tape Allergy Cannot Verified 01/27/19 16:35 Remember pregabalin [From Lyrica] Allergy Cannot Verified 01/27/19 16:35 Remember propoxyphene Allergy Cannot Verified 01/27/19 16:35 [From Darvocet-N] Remember codeine AdvReac Intermediate Nausea Verified 01/27/19 16:35 Home Meds: Home Meds Levothyroxine Sodium [Levothroid] 75 mcg PO DAILY 12/30/12 [History] Propranolol HCl 20 mg PO TID 12/30/12 [History] Simvastatin [Zocor] 40 mg PO BEDTIME 12/30/12 [History] Cyanocobalamin (Vitamin B-12) [Cyanocobalamin Injection] 1 ml IM Q7D 01/24/14 [ History] Cholecalciferol (Vitamin D3) [Vitamin D3] 2,000 unit PO DAILY 02/08/14 [History] Docusate Sodium 100 mg PO DAILY 06/27/14 [History] Sucralfate [Carafate] 1 gram PO TID 12/19/14 [History] Bumetanide [Bumex] 2 mg PO DAILY 05/23/15 [History] Acetaminophen/oxyCODONE [Percocet 325-5 MG] 1 each PO BID 06/18/16 [History] Glimepiride [Amaryl] 2 mg PO QAM 06/18/16 [History] Ipratropium [Atrovent HFA] 2 puff INH TID 06/18/16 [History] Isosorbide Mononitrate [Imdur] 60 mg PO DAILY 06/18/16 [History] Nitroglycerin [Nitrostat] 0.4 mg SL ASDIRECTED PRN 06/18/16 [History] Acetaminophen [Tylenol] 650 mg PO Q4HR PRN 04/06/17 [History] Albuterol/Ipratropium [DuoNeb 3.0-0.5 MG/3 ML] 3 ml INH Q6H PRN 04/06/17 [ History] Alum Hydrox/Mag Hydrox/Simeth [Maalox Advanced] 15 ml PO Q6H PRN 04/06/17 [ History] Triamcinolone Acetonide [Kenalog 0.1% Oint] 1 applic TOP BID 04/06/17 [History] bisacodyL [Dulcolax] 10 mg RECTAL DAILY PRN 04/06/17 [History] Calcium Carbonate [Calcium] 600 mg PO BID 04/07/17 [History] Magnesium Hydroxide [Milk of Magnesia] 30 ml PO DAILY PRN 04/07/17 [History] Na Phos,M-B/Na Phos,Di-Ba [Fleet Enema] 1 applicful RECTAL ASDIRECTED PRN [History] Potassium Chloride 20 meq PO DAILY 05/30/17 [History] Warfarin [Coumadin] 2 mg PO ASDIRECTED 05/30/17 [History] Warfarin [Coumadin] 3 mg PO ASDIRECTED 05/30/17 [History] Carboxymethylcell/Glycerin/Pf [Refresh Optive Sensitive Drops] 1 drop EYEBOTH TID 01/06/18 [History] Diclofenac Sodium [Voltaren 1% Gel] 4 g TOP QID PRN 01/06/18 [History] Meclizine [Antivert] 25 mg PO Q6H PRN 01/06/18 [History] Mirabegron [Myrbetriq] 50 mg PO DAILY 01/06/18 [History] Nystatin [Nyamyc] 1 applic TOP BID 01/06/18 [History] Clindamycin HCl 600 mg PO ASDIRECTED 01/16/19 [History] Ipratropium [Atrovent HFA] 2 puff INH Q6H PRN 01/16/19 [History] Loperamide [Imodium] 2 mg PO Q6H PRN 01/16/19 [History] guaiFENesin [Tussin] 200 mg PO Q4HR PRN 01/16/19 [History] Lactobacillus Rhamnosus GG [Culturelle] 1 cap PO BID #60 cap 01/19/19 [Rx] Past Medical History HEENT History: Reports: Cataract, Impaired Vision Cardiovascular History: Reports: Afib, Angina, Heart Failure, High Cholesterol, Hypertension, Stents Respiratory History: Reports: Sleep Apnea, Other (See Below) Other Respiratory History: Cpap at home Gastrointestinal History: Reports: Cholelithiasis, Gastritis, GERD Genitourinary History: Reports: Urinary Incontinence, UTI, Recurrent ENDO TECH History: Reports: Dysfunctional Uterine Bleeding, , Spontaneous Musculoskeletal History: Reports: Back Pain, Chronic, Fracture, Osteoarthritis Neurological History: Reports: Neuropathy, Diabetic Psychiatric History: Reports: Anxiety Endocrine/Metabolic History: Reports: Diabetes, Type II, Hypothyroidism, Obesity /BMI 30+, Osteoporosis Hematologic History: Reports: Anemia, Anticoagulation Therapy Oncologic (Cancer) History: Reports: Breast Dermatologic History: Reports: Psoriasis - Infectious Disease History Infectious Disease History: Reports: Chicken Pox, Shingles - Past Surgical History HEENT Surgical History: Reports: Adenoidectomy, Cataract Surgery, Tonsillectomy Cardiovascular Surgical History: Reports: Coronary Artery Bypass, Coronary Artery Stent, Percutaneous Transluminal Angioplasty, Vascular Surgery GI Surgical History: Reports: Appendectomy, Cholecystectomy, Colonoscopy, EGD, Hernia, Abdominal Female Surgical History: Reports: Breast Biopsy, D&C, Hysterectomy, Mastectomy, Salpingo-Oophorectomy, Other (See Below) Other Female Surgeries/Procedures: right mastectomy Neurological Surgical History: Reports: Spinal Fusion Musculoskeletal Surgical History: Reports: Shoulder Surgery, Other (See Below) Other Musculoskeletal Surgeries/Procedures:: back surgery Oncologic Surgical History: Reports: Mastectomy Social & Family History - Family History Family Medical History: Noncontributory - Tobacco Use Smoking Status *Q: Never Smoker - Caffeine Use Caffeine Use: Reports: None - Recreational Drug Use Recreational Drug Use: No ED ROS GENERAL - Review of Systems Review Of Systems: Comprehensive ROS is negative, except as noted in HPI. ED EXAM, SKIN/RASH Exam: See Below (Allergen is) Exam Limited By: No Limitations General Appearance: Alert, WD/WN, No Apparent Distress Throat/Mouth: Normal Inspection, Normal Lips, Normal Teeth, Normal Gums, Normal Oropharynx, Normal Voice, No Airway Compromise Head: Atraumatic, Normocephalic Neck: Normal Inspection, Supple, Non-Tender, Full Range of Motion Respiratory/Chest: No Respiratory Distress, Lungs Clear, Normal Breath Sounds, No Accessory Muscle Use, Chest Non-Tender Cardiovascular: Normal Peripheral Pulses, Regular Rate, Rhythm, No Edema, No Gallop, No JVD, No Murmur, No Rub GI/Abdominal: Normal Bowel Sounds, Soft, Non-Tender, No Organomegaly, No Distention, No Abnormal Bruit, No Mass Extremities: Other (Swelling, tenderness, erythema of the right lower extremity. No discharge. CMS intact.) Neurological: Alert, Oriented, CN II-XII Intact, Normal Cognition, Normal Gait, Normal Reflexes, No Motor/Sensory Deficits Skin: Warm Location, Skin: Lower Extremity, Right (Erythema, tenderness and swelling) Course - Vital Signs Last Recorded V/S: Last Vital Signs Temp 36.8 C 01/27/19 16:58 Pulse 79 01/27/19 16:58 Resp 22 H 01/27/19 16:58 BP 167/85 H 01/27/19 16:58 Pulse Ox 94 L 01/27/19 16:58 - Orders/Labs/Meds Orders: Active Orders 24 hr Category Date Time Status C-REACTIVE PROTEIN [CHEM] Urgent Lab 01/27/19 17:45 Received COMPREHENSIVE METABOLIC PN,CMP [CHEM] Urgent Lab 01/27/19 17:45 Received INR,PT,PROTHROMBIN TIME [COAG] Urgent Lab 01/27/19 17:45 Received LACTIC ACID [CHEM] Urgent Lab 01/27/19 17:45 Received Labs: Laboratory Tests 01/27/19 Range/Units 17:45 WBC 8.3 (4.5-11.0) K/uL RBC 4.73 (3.30-5.50) M/uL Hgb 13.2 (12.0-15.0) g/dL Hct 44.2 (36.0-48.0) % MCV 93 (80-98) fL MCH 28 (27-31) pg MCHC 30 L (32-36) % Plt Count 299 (150-400) K/uL Neut % (Auto) 57 (36-66) % Lymph % (Auto) 30 (24-44) % [place] % (Auto) 8 H (2-6) % Eos % (Auto) 3 (2-4) % Baso % (Auto) 1 (0-1) % - Re-Assessments/Exams Free Text/Narrative Re-Assessment/Exam: 01/27/19 18:33 Patient was seen and examined shortly after arrival. Stable. Lab reviewed. Case was discussed with Dr. Garcia hospitalist blockmason regarding admission for possible worsening cellulitis. He accepted the admission for further managment. stable for admission. 01/27/19 19:03 Departure - Departure Time of Disposition: 19:05 Disposition: Admitted As Inpatient 66 Condition: Good Clinical Impression: Cellulitis - Discharge Information Referrals: Steffen Camarena MD [Primary Care Provider] - Forms: ED Department Discharge Sepsis Event Note - Evaluation Sepsis Screening Result: No Definite Risk - Focused Exam Vital Signs: Vital Signs Temp Pulse Resp BP Pulse Ox 01/27/19 16:58 36.8 C 79 22 H 167/85 H 94 L 01/27/19 16:36 36.8 C 79 22 H 167/85 H 94 L Date Exam was Performed: 01/27/19 Time Exam was Performed: 18:48 - My Orders Last 24 Hours: My Active Orders 01/27/19 17:45 C-REACTIVE PROTEIN [CHEM] Urgent COMPREHENSIVE METABOLIC PN,CMP [CHEM] Urgent INR,PT,PROTHROMBIN TIME [COAG] Urgent LACTIC ACID [CHEM] Urgent - Assessment/Plan Last 24 Hours: My Active Orders 01/27/19 17:45 C-REACTIVE PROTEIN [CHEM] Urgent COMPREHENSIVE METABOLIC PN,CMP [CHEM] Urgent INR,PT,PROTHROMBIN TIME [COAG] Urgent LACTIC ACID [CHEM] Urgent Plan: admission to Dr. Garcia
--- NOTE | 2019-01-27 19:00 | PCM.CONS ---
H&P History of Present Illness - General Date of Service: 01/27/19 Source of Information: Patient, Family, Provider History Limitations: Reports: No Limitations - History of Present Illness Initial Comments - Free Text/Narative: CC: my leg is swollen HPI: [facility] presents to the ED from her assisted living facility. She reports that she feels fine. She was sent here by her assisted living facility with concerns of Increased swelling and warmth of the right lower extremity. She does report mild to moderate achy pain in the right leg especially with ambulation. Pain is comfortable at rest. She has been taking [id number] medications for pain. Pain is better than at the time of hospital discharge. She thinks the swelling is better than at the time of hospital discharge. She is been able to get around with her walker. She does not report fevers or chills. Appetite has been good. She only came because she was sent by the assisted living facility, not because she did not feel well. Right Leg Pain Score (Numeric/FACES): 8 - Related Data Allergies/Adverse Reactions: Allergies Allergy/AdvReac Type Severity Reaction Status Date / Time furosemide [From Lasix] Allergy Intermediate Chest Verified 01/27/19 16:35 Tightness latex Allergy Intermediate Hives Verified 01/27/19 16:35 Penicillins Allergy Intermediate Hives Verified 01/27/19 16:35 Sulfa (Sulfonamide Allergy Intermediate Hives Verified 01/27/19 16:35 Antibiotics) lisinopril Allergy Mild Cannot Verified 01/27/19 16:35 Remember adhesive tape Allergy Cannot Verified 01/27/19 16:35 Remember pregabalin [From Lyrica] Allergy Cannot Verified 01/27/19 16:35 Remember propoxyphene Allergy Cannot Verified 01/27/19 16:35 [From Darvocet-N] Remember codeine AdvReac Intermediate Nausea Verified 01/27/19 16:35 Home Medications: Home Meds Levothyroxine Sodium [Levothroid] 75 mcg PO DAILY 12/30/12 [History] Propranolol HCl 20 mg PO TID 12/30/12 [History] Simvastatin [Zocor] 40 mg PO BEDTIME 12/30/12 [History] Cyanocobalamin (Vitamin B-12) [Cyanocobalamin Injection] 1 ml IM Q7D 01/24/14 [ History] Cholecalciferol (Vitamin D3) [Vitamin D3] 2,000 unit PO DAILY 02/08/14 [History] Docusate Sodium 100 mg PO DAILY 06/27/14 [History] Sucralfate [Carafate] 1 gram PO TID 12/19/14 [History] Bumetanide [Bumex] 2 mg PO DAILY 05/23/15 [History] Acetaminophen/oxyCODONE [Percocet 325-5 MG] 1 each PO BID 06/18/16 [History] Glimepiride [Amaryl] 2 mg PO QAM 06/18/16 [History] Ipratropium [Atrovent HFA] 2 puff INH TID 06/18/16 [History] Isosorbide Mononitrate [Imdur] 60 mg PO DAILY 06/18/16 [History] Nitroglycerin [Nitrostat] 0.4 mg SL ASDIRECTED PRN 06/18/16 [History] Acetaminophen [Tylenol] 650 mg PO Q4HR PRN 04/06/17 [History] Albuterol/Ipratropium [DuoNeb 3.0-0.5 MG/3 ML] 3 ml INH Q6H PRN 04/06/17 [ History] Alum Hydrox/Mag Hydrox/Simeth [Maalox Advanced] 15 ml PO Q6H PRN 04/06/17 [ History] Triamcinolone Acetonide [Kenalog 0.1% Oint] 1 applic TOP BID 04/06/17 [History] bisacodyL [Dulcolax] 10 mg RECTAL DAILY PRN 04/06/17 [History] Calcium Carbonate [Calcium] 600 mg PO BID 04/07/17 [History] Magnesium Hydroxide [Milk of Magnesia] 30 ml PO DAILY PRN 04/07/17 [History] Na Phos,M-B/Na Phos,Di-Ba [Fleet Enema] 1 applicful RECTAL ASDIRECTED PRN [History] Potassium Chloride 20 meq PO DAILY 05/30/17 [History] Warfarin [Coumadin] 2 mg PO ASDIRECTED 05/30/17 [History] Warfarin [Coumadin] 3 mg PO ASDIRECTED 05/30/17 [History] Carboxymethylcell/Glycerin/Pf [Refresh Optive Sensitive Drops] 1 drop EYEBOTH TID 01/06/18 [History] Diclofenac Sodium [Voltaren 1% Gel] 4 g TOP QID PRN 01/06/18 [History] Meclizine [Antivert] 25 mg PO Q6H PRN 01/06/18 [History] Mirabegron [Myrbetriq] 50 mg PO DAILY 01/06/18 [History] Nystatin [Nyamyc] 1 applic TOP BID 01/06/18 [History] Clindamycin HCl 600 mg PO ASDIRECTED 01/16/19 [History] Ipratropium [Atrovent HFA] 2 puff INH Q6H PRN 01/16/19 [History] Loperamide [Imodium] 2 mg PO Q6H PRN 01/16/19 [History] guaiFENesin [Tussin] 200 mg PO Q4HR PRN 01/16/19 [History] Lactobacillus Rhamnosus GG [Culturelle] 1 cap PO BID #60 cap 01/19/19 [Rx] Past Medical History HEENT History: Reports: Cataract, Impaired Vision Cardiovascular History: Reports: Afib, Angina, Heart Failure, High Cholesterol, Hypertension, Stents Respiratory History: Reports: Sleep Apnea, Other (See Below) Other Respiratory History: Cpap at home Gastrointestinal History: Reports: Cholelithiasis, Gastritis, GERD Genitourinary History: Reports: Urinary Incontinence, UTI, Recurrent FISH INSPECTOR History: Reports: Dysfunctional Uterine Bleeding, , Spontaneous Musculoskeletal History: Reports: Back Pain, Chronic, Fracture, Osteoarthritis Neurological History: Reports: Neuropathy, Diabetic Psychiatric History: Reports: Anxiety Endocrine/Metabolic History: Reports: Diabetes, Type II, Hypothyroidism, Obesity /BMI 30+, Osteoporosis Hematologic History: Reports: Anemia, Anticoagulation Therapy Oncologic (Cancer) History: Reports: Breast Dermatologic History: Reports: Psoriasis - Infectious Disease History Infectious Disease History: Reports: Chicken Pox, Shingles - Past Surgical History HEENT Surgical History: Reports: Adenoidectomy, Cataract Surgery, Tonsillectomy Cardiovascular Surgical History: Reports: Coronary Artery Bypass, Coronary Artery Stent, Percutaneous Transluminal Angioplasty, Vascular Surgery GI Surgical History: Reports: Appendectomy, Cholecystectomy, Colonoscopy, EGD, Hernia, Abdominal Female Surgical History: Reports: Breast Biopsy, D&C, Hysterectomy, Mastectomy, Salpingo-Oophorectomy, Other (See Below) Other Female Surgeries/Procedures: right mastectomy Neurological Surgical History: Reports: Spinal Fusion Musculoskeletal Surgical History: Reports: Shoulder Surgery, Other (See Below) Other Musculoskeletal Surgeries/Procedures:: back surgery Oncologic Surgical History: Reports: Mastectomy Social & Family History - Family History Family Medical History: Noncontributory - Tobacco Use Smoking Status *Q: Never Smoker - Caffeine Use Caffeine Use: Reports: None - Recreational Drug Use Recreational Drug Use: No H&P Review of Systems - Review of Systems: Review Of Systems: See Below Free Text/Narrative: A complete 12 point review of systems was obtained. Pertinent positives and negatives are noted in the history of present illness. All other systems were reviewed and were negative except as noted. Exam - Exam Exam: See Below - Vital Signs Vital Signs: Last Vital Signs Temp 36.8 C 01/27/19 16:58 Pulse 79 01/27/19 16:58 Resp 22 H 01/27/19 16:58 BP 167/85 H 01/27/19 16:58 Pulse Ox 94 L 01/27/19 16:58 Weight: 89.811 kg - Exam Quality Assessment: No: Supplemental Oxygen General: Alert, Oriented, Cooperative. No: Mild Distress HEENT: Conjunctiva Clear, Mucosa Moist & [place] Neck: Trachea Midline. No: Lymphadenopathy Lungs: Normal Respiratory Effort. No: Wheezing Cardiovascular: Regular Rhythm GI/Abdominal Exam: No Distention Extremities: Pedal Edema (Right leg swollen from the ankle to below the knee), Increased Warmth (Right anterior lower leg) Skin: Warm, Dry, Ecchymosis (Just below the knee and distal lateral anterior surface). No: Wound Neuro Extensive - Mental Status: Alert, Oriented x3, Nl Response to Commands Neuro Extensive - Motor, Sensory, Reflexes: No: Abnormal Motor, Tremor Psychiatric: Alert, Normal Affect - Patient Data Lab Results Last 24 hrs: Laboratory Results - last 24 hr 01/27/19 01/27/19 01/27/19 Range/Units 17:45 17:45 17:45 WBC 8.3 (4.5-11.0) K/uL RBC 4.73 (3.30-5.50) M/uL Hgb 13.2 (12.0-15.0) g/dL Hct 44.2 (36.0-48.0) % MCV 93 (80-98) fL MCH 28 (27-31) pg MCHC 30 L (32-36) % Plt Count 299 (150-400) K/uL Neut % (Auto) 57 (36-66) % Lymph % (Auto) 30 (24-44) % [place] % (Auto) 8 H (2-6) % Eos % (Auto) 3 (2-4) % Baso % (Auto) 1 (0-1) % Sodium 138 L (140-148) mmol/L Potassium 4.1 (3.6-5.2) mmol/L Chloride 102 (100-108) mmol/L Carbon Dioxide 27 (21-32) mmol/L Anion Gap 13.1 (5.0-14.0) mmol/L BUN 19 H (7-18) mg/dL Creatinine 0.9 (0.6-1.0) mg/dL Est Cr Clr Drug Dosing 39.18 mL/min Estimated GFR (MDRD) 60 (>60) Glucose 91 (74-106) mg/dL Lactic Acid 1.4 (0.4-2.0) mmol/L Calcium 8.8 (8.5-10.1) mg/dL Total Bilirubin 0.4 (0.2-1.0) mg/dL AST 16 (15-37) U/L ALT 18 (12-78) U/L Alkaline Phosphatase 118 H (46-116) U/L C-Reactive Protein 1.72 H (0.0-0.3) mg/dL Total Protein 7.7 (6.4-8.2) g/dL Albumin 3.2 L (3.4-5.0) g/dL Globulin 4.5 H (2.3-3.5) g/dL Albumin/Globulin Ratio 0.7 L (1.2-2.2) Result Diagrams: 01/27/19 17:45 01/27/19 17:45 Sepsis Event Note - Evaluation Sepsis Screening Result: No Definite Risk - Focused Exam Vital Signs: Vital Signs Temp Pulse Resp BP Pulse Ox 01/27/19 16:58 36.8 C 79 22 H 167/85 H 94 L 01/27/19 16:36 36.8 C 79 22 H 167/85 H 94 L Date Exam was Performed: 01/27/19 Time Exam was Performed: 19:10 Consult PN Assessment/Plan Procedures: Procedures AGENT NOS ASSAY W/OPTIC (04/19/14) AIRWAY INHALATION TREATMENT (02/07/17) ASSAY OF CREATININE (12/13/16) ASSAY OF MAGNESIUM (01/16/19) ASSAY OF NATRIURETIC PEPTIDE (01/06/18) ASSAY OF SERUM POTASSIUM (08/28/15) ASSAY OF TROPONIN QUANT (02/07/17) ASSAY THYROID STIM HORMONE (02/12/16) BIOFEEDBACK DAGOBERTO/URO/RECTAL (09/20/16) BLOOD CULTURE FOR BACTERIA (01/16/19) BREAST TOMOSYNTHESIS BI (04/28/18) C DIFF AMPLIFIED PROBE (04/19/14) CARDIAC REHAB/MONITOR (10/15/15) CARDIOVASCULAR STRESS TEST (05/29/15) CARDIOVASCULAR STRESS TEST (05/29/15) CHEST X-RAY 1 VIEW FRONTAL (12/30/12) COMP SCREEN MAMMOGRAM ADD-ON (09/26/13) COMPLETE CBC AUTOMATED (02/12/16) COMPLETE CBC W/AUTO DIFF WBC (01/16/19) COMPREHEN METABOLIC PANEL (01/16/19) COMPUTER DX MAMMOGRAM ADD-ON (08/19/14) CT ABD & PELV 1/> REGNS (04/14/18) CT ABD & PELV W/CONTRAST (03/31/17) CT THORAX W/DYE (04/01/15) CT THORAX W/O DYE (06/15/16) CULTURE SCREEN ONLY (05/30/17) EGD BIOPSY SINGLE/MULTIPLE (05/30/17) ELECTRICAL STIMULATION (12/10/16) ELECTROCARDIOGRAM TRACING (02/07/17) EMERGENCY DEPT VISIT (01/06/18) EMERGENCY DEPT VISIT (09/03/17) EMERGENCY DEPT VISIT (02/07/17) EMERGENCY DEPT VISIT (06/27/14) EMERGENCY DEPT VISIT (06/27/14) EMERGENCY DEPT VISIT (04/18/14) EMERGENCY DEPT VISIT (04/18/14) EMERGENCY DEPT VISIT (12/30/12) EVALUATE SWALLOWING FUNCTION (11/18/14) EXC NECK LES SC 3 CM/> (06/21/16) EXCISION BREAST LESION (04/08/17) EXTREMITY STUDY (01/16/19) EXTREMITY STUDY (09/25/13) FIBRIN DEGRADATION QUANT (01/06/18) GAIT TRAINING THERAPY (01/16/19) GLUCOSE BLOOD TEST (01/16/19) GLYCOSYLATED HEMOGLOBIN TEST (10/13/17) HEART FIRST PASS SINGLE (02/20/15) HOT OR COLD PACKS THERAPY (12/06/16) HT MUSCLE IMAGE SPECT MULT (05/29/15) HYDRATE IV INFUSION ADD-ON (12/30/12) HYDRATION IV INFUSION INIT (04/18/14) IMMUNOHISTO ANTB ADDL SLIDE (02/11/14) INJ W/FLUOR EVAL CV DEVICE (12/04/14) INSERT TUNNELED CV CATH (04/10/14) LEUKOCYTE ASSESSMENT FECAL (04/19/14) LIPID PANEL (02/12/16) LOWER EXTREMITY STUDY (02/19/13) LYMPH SYSTEM IMAGING (02/11/14) MANUAL THERAPY 1/> REGIONS (03/04/16) MEASURE BLOOD OXYGEN LEVEL (02/11/14) METABOLIC PANEL TOTAL CA (01/16/19) MICROBE SUSCEPTIBLE BAILEE (09/03/17) MRI BRAIN STEM W/O & W/DYE (02/05/13) MRI JOINT UPR EXTREM W/O DYE (05/01/13) MRI LUMBAR SPINE W/O DYE (05/01/13) MRI UPPER EXTREMITY W/O DYE (12/13/16) OT EVAL LOW COMPLEX 30 MIN (12/06/16) PARAFFIN BATH THERAPY (08/06/13) PATH CONSULT INTRAOP 1 BLOC (02/11/14) POLYSOM 6/> YRS 4/> MYAH (06/08/15) POLYSOM 6/>YRS CPAP 4/> PARM (09/30/15) PROTHROMBIN TIME (01/16/19) PT EVAL LOW COMPLEX 20 MIN (01/16/19) PT EVALUATION (02/05/16) REMOVAL OF BREAST LESION (01/28/14) ROUTINE VENIPUNCTURE (01/16/19) SCR MAMMO BI INCL CAD (04/28/18) SELF CARE MNGMENT TRAINING (01/16/19) STOOL CULTR AEROBIC BACT EA (04/19/14) THER/PROPH/DIAG INJ IV PUSH (12/30/12) THER/PROPH/DIAG INJ SC/IM (01/06/18) THER/PROPH/DIAG IV INF ADDON (06/27/14) THER/PROPH/DIAG IV INF INIT (03/16/18) THERAPEUTIC ACTIVITIES (01/16/19) THERAPEUTIC EXERCISES (01/16/19) TISSUE EXAM BY PATHOLOGIST (04/08/17) TISSUE EXAM BY PATHOLOGIST (02/11/14) TISSUE EXAM BY PATHOLOGIST (02/11/14) TTE F-UP OR LMTD (07/08/14) TTE W/DOPPLER COMPLETE (05/15/18) TUMOR IMMUNOHISTOCHEM/MANUAL (01/28/14) ULTRASOUND BREAST LIMITED (08/19/14) ULTRASOUND THERAPY (12/10/16) URINALYSIS AUTO W/O SCOPE (03/05/18) URINALYSIS AUTO W/SCOPE (02/12/18) URINE BACTERIA CULTURE (09/03/17) URINE CULTURE/COLONY COUNT (03/05/18) US EXAM ABDO BACK WALL COMP (05/23/15) US EXAM BREAST(S) (01/18/14) US EXAM CHEST (09/17/13) VASCULAR STUDY (05/23/15) X-RAY EXAM CHEST 1 VIEW (01/06/18) Problem List Initiated/Reviewed/Updated: Yes Plan: ASSESSMENT AND PLAN - Right lower extremity edema -recent admission for cellulitis. No DVT at that time and she has been chronically anticoagulated. She thinks the pain and swelling are getting better. No evidence for infection at this time. There may be a component of resolving hematoma. I would anticipate this should continue to improve if she elevates her legs and continues to wrap them with the Ju[place] wrap. -Ju[place]arlos wrap on in the morning, off in the evening -Elevate legs 4 times daily -Ambulate to tolerance -Follow-up if worsening I believe this patient is safe for outpatient management at this time. There is no strong indication for IV antibiotics or hospital admission at this time. The patient and her daughter are comfortable with the plan to return to her assisted living facility. Saeid Garcia MD Requesting Provider: Dr Noel Date Consult Requested: 01/27/19 Reason for Consult: Right leg pain and swelling, consider cellulitis Patient History Reviewed: Yes Admission H&P Reviewed: No (Not applicable) Notified Requestor: Yes Time Spent (in minutes): 45
== END 2019-01-27 19:35 ==
LOC: JP.ED 16:09
DX: L03.115 Cellulitis of right lower limb (principal); I50.9 Heart failure, unspecified; I11.0 Hypertensive heart disease with heart failure; E11.9 Type 2 diabetes mellitus without complications; Z88.2 Allergy status to sulfonamides; Z91.040 Latex allergy status; Z88.8 Allergy status to other drugs, medicaments and biological substances; Z88.0 Allergy status to penicillin; Z91.048 Other nonmedicinal substance allergy status; Z88.5 Allergy status to narcotic agent; Z79.899 Other long term (current) drug therapy; Z79.01 Long term (current) use of anticoagulants
CPT/HCPCS: 36415; 80053; 83605; 85025; 85610; 86140; 99283; 99284

== ENCOUNTER 2021-05-07 08:25 | Day surgery (SDC) | payer MEDICARE ==
[2021-05-07] MEDS ORDERED: Sodium Chloride 0.9% 1,000 ML IV SCH (10:00)
[2021-05-07] MEDS ORDERED: Propofol 200 MG/20 ML SDV ONE (10:27)
[2021-05-07 11:32] VITALS: BP 139/64; PULSE 81
== END 2021-05-07 11:43 | disposition home or self-care (01) ==
LOC: JP.SDS 08:25
PROVIDERS: ATTEND Surgery
DX: K20.90 Esophagitis, unspecified without bleeding (principal); K22.89 Other specified disease of esophagus; I12.9 Hypertensive chronic kidney disease with stage 1 through stage 4 chronic kidney disease, or unspecified chronic kidney disease; N18.9 Chronic kidney disease, unspecified; E03.9 Hypothyroidism, unspecified; E66.9 Obesity, unspecified; Z91.040 Latex allergy status
CPT/HCPCS: J2704; J7030

== ENCOUNTER 2022-06-19 22:45 | Emergency (ER) | payer MEDICARE ==
[2022-06-19] MEDS ORDERED: Albuterol/Ipratropium 3.0-0.5 MG/3 ML Neb Soln NEB ONE (23:05)
[2022-06-19 23:15] LABS: BASOPHILS ABSOLUTE AUTO 0.15 K/uL (0.00-0.10); BASOPHILS PERCENT AUTO 1.3 % (0.1-1.3); EOSINOPHILS ABSOLUTE AUTO 0.04 K/uL (0.00-0.40); EOSINOPHILS PERCENT AUTO 0.3 % (0.0-5.4); HEMATOCRIT 43.4 % (34.3-46.0); HEMOGLOBIN 12.6 g/dL (11.2-15.5); IMMATURE GRAN ABSOLUTE AUTO 0.06 K/uL (0.00-0.23); IMMATURE GRAN PERCENT AUTO 0.5 % (0.0-0.7); LYMPHOCYTES ABSOLUTE AUTO 0.83 K/uL (0.8-3.3); MEAN CORPUSCULAR VOLUME 86.1 fL (81.4-99.0); MONOCYTES ABSOLUTE AUTO 0.68 K/uL (0.20-0.90); MONOCYTES PERCENT AUTO 5.7 % (3.3-12.6); NEUTROPHILS PERCENT AUTO 85.2 % (40.0-78.1); PLATELET COUNT,PLT 189 K/uL (130-375); RED BLOOD CELL COUNT 5.04 M/uL (3.77-5.24); WHITE BLOOD CELL COUNT,WBC 11.9 K/uL (3.2-11.0)
[2022-06-19 23:29] LABS: INR 2.9; PROTHROMBIN TIME 27.2 sec (9.2-10.6)
[2022-06-19 23:45] LABS: A/G RATIO 0.8 (1.2-2.2); ALANINE AMINOTRANSFERASE,ALT 14 U/L (12-78); ALBUMIN 3.5 g/dL (3.4-5.0); ALKALINE PHOSPHATASE 89 U/L (46-116); ANION GAP 9.5 mmol/L (5.0-14.0); ASPARTATE AMNIOTRANSFERASE,AST 19 U/L (15-37); BILIRUBIN TOTAL 0.5 mg/dL (0.2-1.0); BLOOD UREA NITROGEN,BUN 20 mg/dL (7-18); CALCIUM 8.6 mg/dL (8.5-10.1); CARBON DIOXIDE,CO2 34 mmol/L (21-32); CHLORIDE,CL 96 mmol/L (100-108); CREATININE 1.1 mg/dL (0.6-1.0); EST CRCL DRUG DOSING (CG) 29.04 mL/min; ESTIMATED GFR 49 mL/min (>60); GLUCOSE RANDOM 142 mg/dL (74-106); POTASSIUM,K 3.5 mmol/L (3.6-5.2); PROTEIN TOTAL,TP 7.8 g/dL (6.4-8.2); SODIUM,NA 136 mmol/L (140-148); TROPONIN I HIGH SENSITIVITY 12.5 pg/mL (<=60.3)
[2022-06-19 23:55] VITALS: BP 118/64; PULSE 100
== END 2022-06-20 01:10 ==
LOC: JP.ED 22:45
DX: J18.9 Pneumonia, unspecified organism (principal); I48.91 Unspecified atrial fibrillation; I11.0 Hypertensive heart disease with heart failure; I50.9 Heart failure, unspecified; E78.00 Pure hypercholesterolemia, unspecified; K21.9 Gastro-esophageal reflux disease without esophagitis; E11.9 Type 2 diabetes mellitus without complications; E03.9 Hypothyroidism, unspecified; E66.9 Obesity, unspecified; Z68.39 Body mass index [BMI] 39.0-39.9, adult; Z95.1 Presence of aortocoronary bypass graft; Z91.040 Latex allergy status; Z88.0 Allergy status to penicillin; Z91.048 Other nonmedicinal substance allergy status; Z88.8 Allergy status to other drugs, medicaments and biological substances; Z88.5 Allergy status to narcotic agent; Z79.899 Other long term (current) drug therapy; Z79.82 Long term (current) use of aspirin
CPT/HCPCS: 36415; 71045; 71045-26; 80053; 83605; 83880; 84145; 84484; 85025; 85610; 94640; 99285; J7620

== ENCOUNTER 2022-06-20 10:45 | Inpatient (IN) | payer MEDICARE ==
[2022-06-20 11:22] LABS: CARBOXYHEMOGLOBIN 2.9 % (0.0-1.6); METHEMOGLOBIN 0.5 %; O2 SATURATION ARTERIAL 98.4 % (95.0-98.0); OXYHEMOGLOBIN 95.1 %; TOTAL HEMOGLOBIN 12.5 g/dL (12.0-16.0)
[2022-06-20 11:22] LABS: BASOPHILS ABSOLUTE AUTO 0.12 K/uL (0.00-0.10); BASOPHILS PERCENT AUTO 0.9 % (0.1-1.3); HEMATOCRIT 41.3 % (34.3-46.0); HEMOGLOBIN 12.1 g/dL (11.2-15.5); IMMATURE GRAN ABSOLUTE AUTO 0.06 K/uL (0.00-0.23); IMMATURE GRAN PERCENT AUTO 0.5 % (0.0-0.7); LYMPHOCYTES ABSOLUTE AUTO 0.98 K/uL (0.8-3.3); LYMPHOCYTES PERCENT AUTO 7.4 % (11.4-47.7); MEAN CORPUSCULAR HEMOGLOBIN 25.3 pg (31.6-35.5); MEAN CORPUSCULAR HGB CONC 29.3 g/dL (31.6-35.5); MEAN CORPUSCULAR VOLUME 86.2 fL (81.4-99.0); MONOCYTES ABSOLUTE AUTO 0.85 K/uL (0.20-0.90); MONOCYTES PERCENT AUTO 6.4 % (3.3-12.6); NEUTROPHILS ABSOLUTE AUTO 11.25 K/uL (1.0-7.6); NEUTROPHILS PERCENT AUTO 84.8 % (40.0-78.1); PLATELET COUNT,PLT 186 K/uL (130-375); RED BLOOD CELL COUNT 4.79 M/uL (3.77-5.24); WHITE BLOOD CELL COUNT,WBC 13.3 K/uL (3.2-11.0)
[2022-06-20 11:24] LABS: BASE EXCESS ARTERIAL 5.4 mm/L; BICARBONATE,ARTERIAL 32.1 mmol/L (22.0-26.0)
[2022-06-20 11:38] LABS: C-REACTIVE PROTEIN 4.14 mg/dL (0.0-0.3); CALCIUM 8.5 mg/dL (8.5-10.1); EST CRCL DRUG DOSING (CG) 31.94 mL/min; POTASSIUM,K 3.9 mmol/L (3.6-5.2)
[2022-06-20 11:41] LABS: ANION GAP 8.9 mmol/L (5.0-14.0)
[2022-06-20] MEDS ORDERED: Sodium Chloride 0.9% 10 ML Syringe FLUSH PRN (12:12)
[2022-06-20] MEDS: cefTRIAXone 1 GM in Sodium Chloride 0.9% 50 ML IV SCH (12:40)
[2022-06-20] MEDS ORDERED: Acetaminophen 325 MG Tab PO PRN (13:01)
[2022-06-20] MEDS ORDERED: Ondansetron 4 MG/2 ML SDV IV PRN (13:01)
[2022-06-20] MEDS: Sodium Chloride 0.9% 1,000 ML IV SCH (13:41)
[2022-06-20] MEDS: Doxycycline 100 MG in Sodium Chloride 0.9% 100 ML IV SCH (13:41)
[2022-06-20] MEDS: Enoxaparin 40 MG/0.4 ML Syringe SUBCUT SCH (15:06)
[2022-06-20] MEDS: Sucralfate 1 GM Tab PO SCH ×2 (15:07→22:01)
[2022-06-20] MEDS: Acetaminophen/oxyCODONE 325-5 MG Tab PO SCH (16:45)
[2022-06-20] MEDS: Albuterol 0.083% 2.5 MG/3 ML Neb Soln NEB PRN (19:44)
[2022-06-20] MEDS: Bumetanide 1 MG Tab PO SCH (21:59)
[2022-06-20] MEDS: Propranolol 40 MG Tab PO SCH (22:01)
[2022-06-20] MEDS: Nystatin Topical Powder 15 GM Bottle TOP SCH (22:03)
[2022-06-20] MEDS: Hypromellose 0.3% Ophth Soln 15 ML Bottle EYEBOTH SCH (22:04)
[2022-06-20] MEDS: Amitriptyline 25 MG Tab PO SCH (22:05)
[2022-06-21] MEDS: Doxycycline 100 MG in Sodium Chloride 0.9% 100 ML IV SCH ×2 (01:20→13:21)
[2022-06-21] MEDS: Albuterol 0.083% 2.5 MG/3 ML Neb Soln NEB PRN ×2 (01:41→09:57)
[2022-06-21] MEDS: Sodium Chloride 0.9% 1,000 ML IV SCH (01:42)
[2022-06-21 05:19] LABS: HEMATOCRIT 41.2 % (34.3-46.0); HEMOGLOBIN 11.7 g/dL (11.2-15.5); MEAN CORPUSCULAR HEMOGLOBIN 25.2 pg (31.6-35.5); MEAN CORPUSCULAR HGB CONC 28.4 g/dL (31.6-35.5); MEAN CORPUSCULAR VOLUME 88.8 fL (81.4-99.0); RED BLOOD CELL COUNT 4.64 M/uL (3.77-5.24)
[2022-06-21 05:40] LABS: CREATININE 0.9 mg/dL (0.6-1.0); EST CRCL DRUG DOSING (CG) 35.49 mL/min; MAGNESIUM 1.4 mg/dL (1.8-2.4); POTASSIUM,K 3.3 mmol/L (3.6-5.2)
[2022-06-21 05:44] LABS: ANION GAP 7.3 mmol/L (5.0-14.0)
[2022-06-21] MEDS: Nystatin Topical Powder 15 GM Bottle TOP SCH ×2 (09:29→20:48)
[2022-06-21] MEDS: Potassium Chloride 10% 20 MEQ/15 ML Soln 15 ML UD Cup PO SCH (09:29)
[2022-06-21] MEDS: Isosorbide Mononitrate 30 MG Tab.ER PO SCH (09:30)
[2022-06-21] MEDS: Bumetanide 1 MG Tab PO SCH ×2 (09:30→20:45)
[2022-06-21] MEDS: Levothyroxine 25 MCG Tab PO SCH (09:30)
[2022-06-21] MEDS: Mirabegron 25 MG Tab Extended Release PO SCH (09:30)
[2022-06-21] MEDS: Sucralfate 1 GM Tab PO SCH ×3 (09:30→20:46)
[2022-06-21] MEDS: Rosuvastatin 10 MG Tab PO SCH (09:30)
[2022-06-21] MEDS: Enoxaparin 40 MG/0.4 ML Syringe SUBCUT SCH (09:30)
[2022-06-21] MEDS: Propranolol 40 MG Tab PO SCH ×3 (09:30→20:48)
[2022-06-21] MEDS: Docusate Sodium 100 MG Cap PO SCH (09:31)
[2022-06-21] MEDS: Aspirin 81 MG Tab.EC PO SCH (09:31)
[2022-06-21] MEDS: Hypromellose 0.3% Ophth Soln 15 ML Bottle EYEBOTH SCH ×3 (09:31→20:47)
[2022-06-21] MEDS: Magnesium Sulfate/Water 2 GM in Premix Bag 1 BAG IV SCH ×3 (10:16→23:11)
[2022-06-21] MEDS ORDERED: methylPREDNISolone Sodium Succinate 125 MG/2 ML SDV IVPUSH ONE (11:45)
[2022-06-21] MEDS: cefTRIAXone 1 GM in Sodium Chloride 0.9% 50 ML IV SCH (12:17)
[2022-06-21] MEDS ORDERED: Potassium Chloride 10% 20 MEQ/15 ML Soln 15 ML UD Cup PO ONE (16:00)
[2022-06-21] MEDS: Acetaminophen/oxyCODONE 325-5 MG Tab PO SCH (16:55)
[2022-06-21] MEDS: Amitriptyline 25 MG Tab PO SCH (20:47)
[2022-06-22] MEDS: Doxycycline 100 MG in Sodium Chloride 0.9% 100 ML IV SCH ×2 (01:14→13:57)
[2022-06-22 05:08] LABS: HEMATOCRIT 41.8 % (34.3-46.0); HEMOGLOBIN 11.9 g/dL (11.2-15.5); MEAN CORPUSCULAR HEMOGLOBIN 24.8 pg (31.6-35.5); MEAN CORPUSCULAR VOLUME 87.3 fL (81.4-99.0); RED BLOOD CELL COUNT 4.79 M/uL (3.77-5.24); WHITE BLOOD CELL COUNT,WBC 7.3 K/uL (3.2-11.0)
[2022-06-22 05:25] LABS: MEAN CORPUSCULAR HGB CONC 28.5 g/dL (31.6-35.5)
[2022-06-22 05:29] LABS: CREATININE 0.9 mg/dL (0.6-1.0); EST CRCL DRUG DOSING (CG) 35.49 mL/min; POTASSIUM,K 3.9 mmol/L (3.6-5.2)
[2022-06-22 05:31] LABS: ANION GAP 9.9 mmol/L (5.0-14.0)
[2022-06-22 05:33] LABS: INR 2.9; PROTHROMBIN TIME 27.5 sec (9.2-10.6)
[2022-06-22] MEDS: Docusate Sodium 100 MG Cap PO SCH (09:42)
[2022-06-22] MEDS: Bumetanide 1 MG Tab PO SCH ×2 (09:42→21:21)
[2022-06-22] MEDS: Mirabegron 25 MG Tab Extended Release PO SCH (09:42)
[2022-06-22] MEDS: Sucralfate 1 GM Tab PO SCH ×3 (09:42→21:21)
[2022-06-22] MEDS: Rosuvastatin 10 MG Tab PO SCH (09:42)
[2022-06-22] MEDS: Enoxaparin 40 MG/0.4 ML Syringe SUBCUT SCH (09:43)
[2022-06-22] MEDS: Hypromellose 0.3% Ophth Soln 15 ML Bottle EYEBOTH SCH ×3 (09:43→21:22)
[2022-06-22] MEDS: Levothyroxine 25 MCG Tab PO SCH (09:43)
[2022-06-22] MEDS: Aspirin 81 MG Tab.EC PO SCH (09:43)
[2022-06-22] MEDS: Nystatin Topical Powder 15 GM Bottle TOP SCH ×2 (09:44→21:23)
[2022-06-22] MEDS: Isosorbide Mononitrate 30 MG Tab.ER PO SCH (09:44)
[2022-06-22] MEDS: Propranolol 40 MG Tab PO SCH ×3 (09:44→21:22)
[2022-06-22] MEDS: Potassium Chloride 10% 20 MEQ/15 ML Soln 15 ML UD Cup PO SCH (09:45)
[2022-06-22] MEDS: cefTRIAXone 1 GM in Sodium Chloride 0.9% 50 ML IV SCH (13:00)
[2022-06-22] MEDS ORDERED: predniSONE 20 MG Tab PO ONE (13:30)
[2022-06-22] MEDS: Pantoprazole 40 MG Tab.CR PO SCH (17:40)
[2022-06-22] MEDS: Acetaminophen/oxyCODONE 325-5 MG Tab PO SCH (17:43)
[2022-06-22] MEDS: Amitriptyline 25 MG Tab PO SCH (21:21)
[2022-06-23] MEDS: Doxycycline 100 MG in Sodium Chloride 0.9% 100 ML IV SCH ×2 (01:54→12:49)
[2022-06-23 04:33] LABS: HEMATOCRIT 41.7 % (34.3-46.0); HEMOGLOBIN 11.8 g/dL (11.2-15.5); MEAN CORPUSCULAR HEMOGLOBIN 25.1 pg (31.6-35.5); MEAN CORPUSCULAR HGB CONC 28.3 g/dL (31.6-35.5); MEAN CORPUSCULAR VOLUME 88.5 fL (81.4-99.0); RED BLOOD CELL COUNT 4.71 M/uL (3.77-5.24); WHITE BLOOD CELL COUNT,WBC 8.1 K/uL (3.2-11.0)
[2022-06-23 04:47] LABS: INR 2.9; PROTHROMBIN TIME 27.7 sec (9.2-10.6)
[2022-06-23 04:53] LABS: CREATININE 0.9 mg/dL (0.6-1.0); EST CRCL DRUG DOSING (CG) 35.18 mL/min
[2022-06-23] MEDS: predniSONE 20 MG Tab PO SCH (07:18)
[2022-06-23] MEDS: Pantoprazole 40 MG Tab.CR PO SCH ×2 (07:18→15:52)
[2022-06-23] MEDS: Albuterol 0.083% 2.5 MG/3 ML Neb Soln NEB PRN (07:45)
[2022-06-23] MEDS: Docusate Sodium 100 MG Cap PO SCH (08:08)
[2022-06-23] MEDS: Sucralfate 1 GM Tab PO SCH ×3 (08:08→21:57)
[2022-06-23] MEDS: Bumetanide 1 MG Tab PO SCH ×2 (08:08→21:57)
[2022-06-23] MEDS: Hypromellose 0.3% Ophth Soln 15 ML Bottle EYEBOTH SCH ×3 (08:09→21:58)
[2022-06-23] MEDS: Rosuvastatin 10 MG Tab PO SCH (08:09)
[2022-06-23] MEDS: Aspirin 81 MG Tab.EC PO SCH (08:09)
[2022-06-23] MEDS: Isosorbide Mononitrate 30 MG Tab.ER PO SCH (08:10)
[2022-06-23] MEDS: Propranolol 40 MG Tab PO SCH ×3 (08:10→21:57)
[2022-06-23] MEDS: Levothyroxine 25 MCG Tab PO SCH (08:10)
[2022-06-23] MEDS: Enoxaparin 40 MG/0.4 ML Syringe SUBCUT SCH (08:11)
[2022-06-23] MEDS: Mirabegron 25 MG Tab Extended Release PO SCH (08:11)
[2022-06-23] MEDS: Nystatin Topical Powder 15 GM Bottle TOP SCH ×2 (08:11→21:58)
[2022-06-23] MEDS: Potassium Chloride 10% 20 MEQ/15 ML Soln 15 ML UD Cup PO SCH (08:12)
[2022-06-23] MEDS ORDERED: Bumetanide 1 MG Tab PO ONE (09:29)
[2022-06-23] MEDS: Oxymetazoline 0.05% Nasal Spray 30 ML Bottle NAS PRN (10:26)
[2022-06-23] MEDS: Albuterol/Ipratropium 3.0-0.5 MG/3 ML Neb Soln NEB SCH ×3 (10:54→21:54)
[2022-06-23] MEDS: cefTRIAXone 1 GM in Sodium Chloride 0.9% 50 ML IV SCH (12:06)
[2022-06-23] MEDS ORDERED: Magnesium Hydroxide 400 MG/5 ML Susp 30 ML Cup PO PRN (14:53)
[2022-06-23] MEDS ORDERED: guaiFENesin 100 MG/5 ML Soln 10 ML UD Cup PO PRN (21:15)
[2022-06-23] MEDS: Amitriptyline 25 MG Tab PO SCH (21:58)
[2022-06-23] MEDS: Acetaminophen/oxyCODONE 325-5 MG Tab PO SCH (21:58)
[2022-06-24] MEDS: Doxycycline 100 MG in Sodium Chloride 0.9% 100 ML IV SCH ×2 (01:17→13:55)
[2022-06-24] MEDS: Albuterol 0.083% 2.5 MG/3 ML Neb Soln NEB PRN (04:19)
[2022-06-24] MEDS: Oxymetazoline 0.05% Nasal Spray 30 ML Bottle NAS PRN (04:21)
[2022-06-24 04:43] LABS: HEMATOCRIT 43.8 % (34.3-46.0); HEMOGLOBIN 12.8 g/dL (11.2-15.5); MEAN CORPUSCULAR HEMOGLOBIN 24.9 pg (31.6-35.5); MEAN CORPUSCULAR HGB CONC 29.2 g/dL (31.6-35.5); RED BLOOD CELL COUNT 5.15 M/uL (3.77-5.24); WHITE BLOOD CELL COUNT,WBC 7.2 K/uL (3.2-11.0)
[2022-06-24 04:57] LABS: INR 2.1; PROTHROMBIN TIME 20.6 sec (9.2-10.6)
[2022-06-24 05:05] LABS: C-REACTIVE PROTEIN 1.92 mg/dL (0.0-0.3); CALCIUM 8.4 mg/dL (8.5-10.1); CREATININE 0.8 mg/dL (0.6-1.0); EST CRCL DRUG DOSING (CG) 39.58 mL/min; POTASSIUM,K 3.3 mmol/L (3.6-5.2)
[2022-06-24 05:07] LABS: ANION GAP 7.3 mmol/L (5.0-14.0)
[2022-06-24] MEDS: Albuterol/Ipratropium 3.0-0.5 MG/3 ML Neb Soln NEB SCH ×4 (07:06→20:13)
[2022-06-24] MEDS: predniSONE 20 MG Tab PO SCH (07:30)
[2022-06-24] MEDS: Pantoprazole 40 MG Tab.CR PO SCH ×2 (07:30→15:47)
[2022-06-24] MEDS: Rosuvastatin 10 MG Tab PO SCH (09:04)
[2022-06-24] MEDS: Propranolol 40 MG Tab PO SCH ×3 (09:04→20:15)
[2022-06-24] MEDS: Isosorbide Mononitrate 30 MG Tab.ER PO SCH (09:04)
[2022-06-24] MEDS: Docusate Sodium 100 MG Cap PO SCH (09:06)
[2022-06-24] MEDS: Hypromellose 0.3% Ophth Soln 15 ML Bottle EYEBOTH SCH ×3 (09:06→20:14)
[2022-06-24] MEDS: Sucralfate 1 GM Tab PO SCH ×3 (09:06→20:14)
[2022-06-24] MEDS: Aspirin 81 MG Tab.EC PO SCH (09:06)
[2022-06-24] MEDS: Bumetanide 1 MG Tab PO SCH ×2 (09:07→20:13)
[2022-06-24] MEDS: Enoxaparin 40 MG/0.4 ML Syringe SUBCUT SCH (09:07)
[2022-06-24] MEDS: Mirabegron 25 MG Tab Extended Release PO SCH (09:07)
[2022-06-24] MEDS: Nystatin Topical Powder 15 GM Bottle TOP SCH ×2 (09:08→20:14)
[2022-06-24] MEDS: Levothyroxine 25 MCG Tab PO SCH (09:08)
[2022-06-24] MEDS: Potassium Chloride 20 MEQ Tab.ER PO SCH (09:14)
[2022-06-24] MEDS: Potassium Chloride 20 MEQ Tab.ER ONE (09:30)
[2022-06-24] MEDS: cefTRIAXone 1 GM in Sodium Chloride 0.9% 50 ML IV SCH (12:59)
[2022-06-24] MEDS: Acetaminophen/oxyCODONE 325-5 MG Tab PO SCH (20:13)
[2022-06-24] MEDS: Amitriptyline 25 MG Tab PO SCH (20:15)
[2022-06-25] MEDS: Doxycycline 100 MG in Sodium Chloride 0.9% 100 ML IV SCH (00:06)
[2022-06-25] MEDS: Albuterol 0.083% 2.5 MG/3 ML Neb Soln NEB PRN (00:46)
[2022-06-25] MEDS: Albuterol/Ipratropium 3.0-0.5 MG/3 ML Neb Soln NEB SCH (06:58)
[2022-06-25] MEDS: Pantoprazole 40 MG Tab.CR PO SCH (07:30)
[2022-06-25] MEDS: predniSONE 20 MG Tab PO SCH (07:31)
[2022-06-25] MEDS ORDERED: Ondansetron 4 MG Tab.DIS PO PRN (07:45)
[2022-06-25] MEDS ORDERED: Bumetanide 1 MG Tab PO SCH (08:00)
[2022-06-25] MEDS: Rosuvastatin 10 MG Tab PO SCH (08:46)
[2022-06-25] MEDS: Levothyroxine 25 MCG Tab PO SCH (08:47)
[2022-06-25] MEDS: Propranolol 40 MG Tab PO SCH (08:47)
[2022-06-25] MEDS: Aspirin 81 MG Tab.EC PO SCH (08:47)
[2022-06-25] MEDS: Isosorbide Mononitrate 30 MG Tab.ER PO SCH (08:47)
[2022-06-25] MEDS: Sucralfate 1 GM Tab PO SCH (08:47)
[2022-06-25] MEDS: Potassium Chloride 20 MEQ Tab.ER PO SCH (08:47)
[2022-06-25] MEDS: Docusate Sodium 100 MG Cap PO SCH (08:47)
[2022-06-25] MEDS: Nystatin Topical Powder 15 GM Bottle TOP SCH (08:48)
[2022-06-25] MEDS: Enoxaparin 40 MG/0.4 ML Syringe SUBCUT SCH (08:48)
[2022-06-25] MEDS: Hypromellose 0.3% Ophth Soln 15 ML Bottle EYEBOTH SCH (08:49)
[2022-06-25] MEDS: Mirabegron 25 MG Tab Extended Release PO SCH (08:49)
[2022-06-25] MEDS ORDERED: Doxycycline 100 MG Cap PO SCH (09:00)
[2022-06-25] MEDS: Potassium Chloride 20 MEQ Tab.ER ONE (09:43)
[2022-06-25 09:56] VITALS: BP 129/61; PULSE 85
== END 2022-06-25 10:08 | DRG 193 ==
LOC: JP.ED 10:45 → JP.MS 12:15
PROVIDERS: ADMIT Hospitalist; ATTEND Internal Medicine
DX: J18.9 Pneumonia, unspecified organism (principal); J96.21 Acute and chronic respiratory failure with hypoxia; J96.22 Acute and chronic respiratory failure with hypercapnia; J44.0 Chronic obstructive pulmonary disease with (acute) lower respiratory infection; J44.1 Chronic obstructive pulmonary disease with (acute) exacerbation; I48.20 Chronic atrial fibrillation, unspecified; E78.5 Hyperlipidemia, unspecified; I50.9 Heart failure, unspecified; Z66 Do not resuscitate; G47.33 Obstructive sleep apnea (adult) (pediatric); Z20.822 Contact with and (suspected) exposure to COVID-19; I48.91 Unspecified atrial fibrillation; E11.9 Type 2 diabetes mellitus without complications; F41.9 Anxiety disorder, unspecified; I10 Essential (primary) hypertension; D64.9 Anemia, unspecified; E03.9 Hypothyroidism, unspecified; E78.00 Pure hypercholesterolemia, unspecified; Z79.1 Long term (current) use of non-steroidal anti-inflammatories (NSAID); E66.9 Obesity, unspecified; Z79.890 Hormone replacement therapy; K21.9 Gastro-esophageal reflux disease without esophagitis; Z79.52 Long term (current) use of systemic steroids; Z88.0 Allergy status to penicillin; Z91.040 Latex allergy status; Z88.2 Allergy status to sulfonamides; Z88.8 Allergy status to other drugs, medicaments and biological substances; Z79.01 Long term (current) use of anticoagulants; Z87.440 Personal history of urinary (tract) infections; Z79.4 Long term (current) use of insulin; Z68.38 Body mass index [BMI] 38.0-38.9, adult; Z90.89 Acquired absence of other organs; Z98.42 Cataract extraction status, left eye; Z98.41 Cataract extraction status, right eye; Z90.49 Acquired absence of other specified parts of digestive tract; Z98.890 Other specified postprocedural states; Z90.710 Acquired absence of both cervix and uterus; Z90.10 Acquired absence of unspecified breast and nipple; Z90.722 Acquired absence of ovaries, bilateral; Z79.82 Long term (current) use of aspirin; Z79.899 Other long term (current) drug therapy; Z95.1 Presence of aortocoronary bypass graft; Z95.5 Presence of coronary angioplasty implant and graft
CPT/HCPCS: 36415; 36600; 80048; 82803; 83605; 85025; 86140; 99284; 99285; U0002; 83735; 85027; 85610; 87040; 93005; 93010; 94640; 94660; 94667; 94668; 96365; 97110-GP; 97161-GP; 97530-GP; 99222; 99232; 99239; A9270-GY; J0696; J1650; J2405; J2930; J3475; J3490; J7030; J7512; J7620; Q0162

== ENCOUNTER 2023-11-25 11:37 | Inpatient (IN) | payer MEDICARE ==
[2023-11-25] MEDS ORDERED: Sodium Chloride 0.9% 10 ML Syringe FLUSH PRN (12:13)
[2023-11-25 12:35] LABS: BASOPHILS ABSOLUTE AUTO 0.23 K/uL (0.00-0.10); BASOPHILS PERCENT AUTO 3.5 % (0.1-1.3); EOSINOPHILS ABSOLUTE AUTO 0.23 K/uL (0.00-0.40); EOSINOPHILS PERCENT AUTO 3.5 % (0.0-5.4); HEMATOCRIT 34.6 % (34.3-46.0); HEMOGLOBIN 10.5 g/dL (11.2-15.5); IMMATURE GRAN ABSOLUTE AUTO 0.04 K/uL (0.00-0.23); IMMATURE GRAN PERCENT AUTO 0.6 % (0.0-0.7); LYMPHOCYTES ABSOLUTE AUTO 1.78 K/uL (0.8-3.3); LYMPHOCYTES PERCENT AUTO 26.9 % (11.4-47.7); MEAN CORPUSCULAR HEMOGLOBIN 25.7 pg (31.6-35.5); MEAN CORPUSCULAR HGB CONC 30.3 g/dL (31.6-35.5); MEAN CORPUSCULAR VOLUME 84.8 fL (81.4-99.0); MONOCYTES ABSOLUTE AUTO 0.38 K/uL (0.20-0.90); MONOCYTES PERCENT AUTO 5.7 % (3.3-12.6); NEUTROPHILS ABSOLUTE AUTO 3.95 K/uL (1.0-7.6); NEUTROPHILS PERCENT AUTO 59.8 % (40.0-78.1); PLATELET COUNT,PLT 268 K/uL (130-375); RED BLOOD CELL COUNT 4.08 M/uL (3.77-5.24); WHITE BLOOD CELL COUNT,WBC 6.6 K/uL (3.2-11.0)
[2023-11-25] MEDS: Lactated Ringers 500 ML IV ONE (12:39)
[2023-11-25 12:56] LABS: INR 2.7; PROTHROMBIN TIME 26.2 sec (9.2-10.6)
[2023-11-25 13:01] LABS: ALANINE AMINOTRANSFERASE,ALT 10 U/L (12-78); ALBUMIN 3.3 g/dL (3.4-5.0); ALKALINE PHOSPHATASE 60 U/L (46-116); ANION GAP 6.2 mmol/L (5.0-14.0); ASPARTATE AMNIOTRANSFERASE,AST 16 U/L (15-37); BILIRUBIN TOTAL 0.5 mg/dL (0.2-1.0); BLOOD UREA NITROGEN,BUN 20 mg/dL (7-18); CALCIUM 8.8 mg/dL (8.5-10.1); CARBON DIOXIDE,CO2 31 mmol/L (21-32); CHLORIDE,CL 104 mmol/L (100-108); CREATININE 1.1 mg/dL (0.6-1.0); EST CRCL DRUG DOSING (CG) 27.96 mL/min; ESTIMATED GFR 48 mL/min (>60); GLUCOSE RANDOM 95 mg/dL (74-106); POTASSIUM,K 4.4 mmol/L (3.6-5.2); PROTEIN TOTAL,TP 7.2 g/dL (6.4-8.2); SODIUM,NA 141 mmol/L (140-148); TROPONIN I HIGH SENSITIVITY 6.8 pg/mL (<=60.3)
[2023-11-25 13:03] LABS: A/G RATIO 0.9 (1.2-2.2)
[2023-11-25 14:09] LABS: APPEARANCE,URINE CLOUDY (CLEAR); BILIRUBIN,URINE NEGATIVE (NEGATIVE); COLOR,URINE YELLOW (YELLOW); GLUCOSE,URINE NEGATIVE (NEGATIVE); KETONES,URINE NEGATIVE (NEGATIVE); LEUKOCYTE ESTERASE,URINE TRACE (NEGATIVE); NITRITE,URINE POSITIVE (NEGATIVE); OCCULT BLOOD,URINE NEGATIVE (NEGATIVE); PH,URINE 5.5 (5.0-8.0); PROTEIN,URINE NEGATIVE (NEGATIVE); UROBILINOGEN,URINE 0.2 EU/dL (0.2-1.0)
[2023-11-25 14:22] LABS: AMORPHOUS SEDIMENT,URINE NOT SEEN; BACTERIA,URINE MANY; EPITHELIAL CELLS,URINE FEW; MUCUS,URINE FEW; RBC,URINE 0-5 (0-5); WBC,URINE 20-30 (0-5)
[2023-11-25] MEDS: cefTRIAXone 1 GM in Sodium Chloride 0.9% 50 ML IV ONE (14:42)
[2023-11-25] MEDS ORDERED: Sennosides/Docusate Sodium 50-8.6 MG Tab PO PRN (17:20)
[2023-11-25] MEDS ORDERED: Magnesium Hydroxide 400 MG/5 ML Susp 30 ML Cup PO PRN (17:20)
[2023-11-25] MEDS ORDERED: Ondansetron 4 MG/2 ML SDV IV PRN (17:20)
[2023-11-25] MEDS ORDERED: Ondansetron 4 MG Tab.DIS PO PRN (17:20)
[2023-11-25] MEDS: Propranolol 40 MG Tab PO SCH (20:31)
[2023-11-25] MEDS: Lactobacillus Rhamnosus GG (Probiotic) Cap PO SCH (20:31)
[2023-11-25] MEDS: Hypromellose 0.3% Ophth Soln 15 ML Bottle EYEBOTH SCH (20:31)
[2023-11-25] MEDS: Calcium Carbonate/Vitamin D3 1500 MG-400 Units Tab PO SCH (20:31)
[2023-11-25] MEDS: Acetaminophen 325 MG Tab PO SCH (20:32)
[2023-11-25] MEDS: Budesonide 0.5 MG/2 ML Neb Susp INH SCH (20:39)
[2023-11-25] MEDS: Acetaminophen/oxyCODONE 325-5 MG Tab PO PRN (22:14)
[2023-11-26] MEDS: Acetaminophen 325 MG Tab PO PRN (05:06)
[2023-11-26 05:14] LABS: INR 2.8; PROTHROMBIN TIME 27.4 sec (9.2-10.6)
[2023-11-26 05:17] LABS: CALCIUM 8.8 mg/dL (8.5-10.1); EST CRCL DRUG DOSING (CG) 30.76 mL/min; POTASSIUM,K 4.3 mmol/L (3.6-5.2)
[2023-11-26 05:19] LABS: ANION GAP 11.3 mmol/L (5.0-14.0)
[2023-11-26] MEDS: Albuterol/Ipratropium 3.0-0.5 MG/3 ML Neb Soln NEB SCH ×2 (07:11→14:22)
[2023-11-26] MEDS: Isosorbide Mononitrate 30 MG Tab.ER PO SCH (09:16)
[2023-11-26] MEDS: Levothyroxine 25 MCG Tab PO SCH (09:16)
[2023-11-26] MEDS: Cholecalciferol (Vitamin D3) 25 MCG Tab PO SCH (09:16)
[2023-11-26] MEDS: Sennosides 8.6 MG Tab PO SCH (09:17)
[2023-11-26] MEDS: Aspirin 81 MG Tab.Chew PO SCH (09:18)
[2023-11-26] MEDS: Rosuvastatin 10 MG Tab PO SCH (09:18)
[2023-11-26] MEDS: Sucralfate 1 GM Tab PO SCH ×2 (09:19→15:11)
[2023-11-26] MEDS: Potassium Chloride 20 MEQ Tab.ER PO SCH (09:19)
[2023-11-26] MEDS: Bumetanide 1 MG Tab PO SCH (09:19)
[2023-11-26] MEDS: cefTRIAXone 1 GM in Sodium Chloride 0.9% 50 ML IV SCH (14:49)
[2023-11-26] MEDS ORDERED: Albuterol/Ipratropium 3.0-0.5 MG/3 ML Neb Soln NEB SCH (15:00)
[2023-11-26] MEDS: Pantoprazole 40 MG Tab.CR PO SCH (20:34)
[2023-11-27 05:08] LABS: INR 2.1; PROTHROMBIN TIME 20.8 sec (9.2-10.6)
[2023-11-27] MEDS: Mirabegron 25 MG Tab Extended Release PO SCH (08:39)
[2023-11-27] MEDS: Ciprofloxacin 500 MG Tab PO SCH (08:44)
[2023-11-27] MEDS: Warfarin** 1 MG TABLET PO ONE (13:23)
[2023-11-28 05:50] VITALS: BP 132/56; PULSE 61
== END 2023-11-28 10:17 | disposition home or self-care (01) | DRG 690 ==
LOC: JP.ED 11:37 → JP.MS 16:09
PROVIDERS: ADMIT Internal Medicine; ATTEND Hospitalist
DX: N30.00 Acute cystitis without hematuria (principal); I48.20 Chronic atrial fibrillation, unspecified; I11.0 Hypertensive heart disease with heart failure; I50.9 Heart failure, unspecified; I48.91 Unspecified atrial fibrillation; I50.32 Chronic diastolic (congestive) heart failure; E78.00 Pure hypercholesterolemia, unspecified; I25.10 Atherosclerotic heart disease of native coronary artery without angina pectoris; G47.30 Sleep apnea, unspecified; K21.9 Gastro-esophageal reflux disease without esophagitis; H54.7 Unspecified visual loss; E66.9 Obesity, unspecified; E03.9 Hypothyroidism, unspecified; E11.40 Type 2 diabetes mellitus with diabetic neuropathy, unspecified; Z88.0 Allergy status to penicillin; D64.9 Anemia, unspecified; G89.29 Other chronic pain; M54.9 Dorsalgia, unspecified; Z91.048 Other nonmedicinal substance allergy status; M19.90 Unspecified osteoarthritis, unspecified site; F41.9 Anxiety disorder, unspecified; N18.31 Chronic kidney disease, stage 3a; B96.89 Other specified bacterial agents as the cause of diseases classified elsewhere; Z88.8 Allergy status to other drugs, medicaments and biological substances; Z88.2 Allergy status to sulfonamides; Z88.5 Allergy status to narcotic agent; Z95.1 Presence of aortocoronary bypass graft; Z98.1 Arthrodesis status; Z95.5 Presence of coronary angioplasty implant and graft; Z98.49 Cataract extraction status, unspecified eye; Z68.30 Body mass index [BMI] 30.0-30.9, adult; Z90.10 Acquired absence of unspecified breast and nipple; Z79.82 Long term (current) use of aspirin; Z79.52 Long term (current) use of systemic steroids; Z79.01 Long term (current) use of anticoagulants; Z91.040 Latex allergy status; Z79.899 Other long term (current) drug therapy; Z90.49 Acquired absence of other specified parts of digestive tract; Z79.890 Hormone replacement therapy
CPT/HCPCS: 36415; 71045; 80053; 81001; 82140; 83605; 84484; 85025; 85610; 87086; 87088; 87186; 96361; 96365; 99285; J0696; J3490; J7120; 80048; 94640; 99222; 99232; 99238; 99284; A9270-GY; J7620

== ENCOUNTER 2024-03-03 09:51 | Emergency (ER) | payer MEDICARE ==
[2024-03-03] MEDS ORDERED: Naloxone 0.4 MG/ML SDV IVPUSH PRN (10:01)
[2024-03-03 10:06] LABS: BASOPHILS ABSOLUTE AUTO 0.19 K/uL (0.00-0.10); EOSINOPHILS PERCENT AUTO 2.1 % (0.0-5.4); HEMATOCRIT 34.5 % (34.3-46.0); HEMOGLOBIN 10.7 g/dL (11.2-15.5); IMMATURE GRAN ABSOLUTE AUTO 0.11 K/uL (0.00-0.23); IMMATURE GRAN PERCENT AUTO 1.1 % (0.0-0.7); LYMPHOCYTES ABSOLUTE AUTO 1.52 K/uL (0.8-3.3); LYMPHOCYTES PERCENT AUTO 15.8 % (11.4-47.7); MEAN CORPUSCULAR HEMOGLOBIN 25.1 pg (31.6-35.5); MONOCYTES ABSOLUTE AUTO 0.53 K/uL (0.20-0.90); MONOCYTES PERCENT AUTO 5.5 % (3.3-12.6); NEUTROPHILS ABSOLUTE AUTO 7.07 K/uL (1.0-7.6); NEUTROPHILS PERCENT AUTO 73.5 % (40.0-78.1); PLATELET COUNT,PLT 357 K/uL (130-375); RED BLOOD CELL COUNT 4.26 M/uL (3.77-5.24); WHITE BLOOD CELL COUNT,WBC 9.6 K/uL (3.2-11.0)
[2024-03-03 10:23] LABS: A/G RATIO 0.7 (1.2-2.2); ALANINE AMINOTRANSFERASE,ALT 15 U/L (12-78); ALBUMIN 3.2 g/dL (3.4-5.0); ALKALINE PHOSPHATASE 86 U/L (46-116); ASPARTATE AMNIOTRANSFERASE,AST 23 U/L (15-37); BILIRUBIN TOTAL 0.4 mg/dL (0.2-1.0); BLOOD UREA NITROGEN,BUN 17 mg/dL (7-18); CALCIUM 8.3 mg/dL (8.5-10.1); CARBON DIOXIDE,CO2 29 mmol/L (21-32); CHLORIDE,CL 98 mmol/L (100-108); CREATINE KINASE,CK 38 U/L (26-192); CREATININE 1.1 mg/dL (0.6-1.0); ESTIMATED GFR 48 mL/min (>60); GLUCOSE RANDOM 126 mg/dL (74-106); POTASSIUM,K 4.4 mmol/L (3.6-5.2); PROTEIN TOTAL,TP 7.6 g/dL (6.4-8.2); SODIUM,NA 136 mmol/L (140-148)
[2024-03-03 10:24] LABS: ANION GAP 13.4 mmol/L (5.0-14.0)
[2024-03-03] MEDS: HYDROmorphone 0.5 MG/0.5 ML Syringe IVPUSH PRN (10:47)
[2024-03-03] MEDS: Ondansetron 4 MG/2 ML SDV IVPUSH ONE (10:47)
[2024-03-03] MEDS: Sodium Chloride 0.9% 1,000 ML IV ONE ×3 (10:47→15:04)
[2024-03-03 11:27] VITALS: BP 117/58; PULSE 76
[2024-03-03 12:14] LABS: APPEARANCE,URINE SLIGHTLY CLOUDY (CLEAR); BILIRUBIN,URINE NEGATIVE (NEGATIVE); COLOR,URINE YELLOW (YELLOW); GLUCOSE,URINE NEGATIVE (NEGATIVE); KETONES,URINE NEGATIVE (NEGATIVE); LEUKOCYTE ESTERASE,URINE TRACE (NEGATIVE); NITRITE,URINE NEGATIVE (NEGATIVE); OCCULT BLOOD,URINE NEGATIVE (NEGATIVE); PROTEIN,URINE NEGATIVE (NEGATIVE); UROBILINOGEN,URINE 0.2 EU/dL (0.2-1.0)
[2024-03-03 12:15] LABS: AMORPHOUS SEDIMENT,URINE RARE; BACTERIA,URINE MODERATE; EPITHELIAL CELLS,URINE FEW; MUCUS,URINE NOT SEEN; RBC,URINE NOT SEEN (0-5)
[2024-03-03 12:36] LABS: PROTHROMBIN TIME 38.6 sec (9.2-10.6)
== END 2024-03-03 16:00 ==
LOC: JP.ED 09:51
DX: S42.301A Unspecified fracture of shaft of humerus, right arm, initial encounter for closed fracture (principal); S00.03XA Contusion of scalp, initial encounter; I95.9 Hypotension, unspecified; I11.0 Hypertensive heart disease with heart failure; I50.9 Heart failure, unspecified; I25.10 Atherosclerotic heart disease of native coronary artery without angina pectoris; I48.91 Unspecified atrial fibrillation; E78.00 Pure hypercholesterolemia, unspecified; J44.9 Chronic obstructive pulmonary disease, unspecified; K21.9 Gastro-esophageal reflux disease without esophagitis; E11.40 Type 2 diabetes mellitus with diabetic neuropathy, unspecified; E66.9 Obesity, unspecified; E03.9 Hypothyroidism, unspecified; Z95.1 Presence of aortocoronary bypass graft; Z95.5 Presence of coronary angioplasty implant and graft; Z90.49 Acquired absence of other specified parts of digestive tract; Z90.710 Acquired absence of both cervix and uterus; Z79.82 Long term (current) use of aspirin; Z79.899 Other long term (current) drug therapy; Z79.890 Hormone replacement therapy; Z79.1 Long term (current) use of non-steroidal anti-inflammatories (NSAID); Z79.01 Long term (current) use of anticoagulants; Z79.891 Long term (current) use of opiate analgesic; Z88.2 Allergy status to sulfonamides; Z88.6 Allergy status to analgesic agent; Z91.048 Other nonmedicinal substance allergy status; Z88.8 Allergy status to other drugs, medicaments and biological substances; Z88.0 Allergy status to penicillin; Z91.040 Latex allergy status; Z68.30 Body mass index [BMI] 30.0-30.9, adult; W18.30XA Fall on same level, unspecified, initial encounter; Y92.129 Unspecified place in nursing home as the place of occurrence of the external cause
CPT/HCPCS: 36415; 70450; 71045; 72125; 73060; 76377; 80053; 81001; 82550; 83605; 84484; 85025; 85610; 93005; 93010; 96361; 96374; 96375; 96376; 99285; J2405; J7030